=== PATIENT | female | born 1995 | race Caucasian/White ===

== ENCOUNTER → 2019-07-04 14:11 | Outpatient (CLI) | payer OTHER, BC, SELFPAY ==
--- NOTE | 2019-07-04 14:21 | US_ITS ---
PROCEDURE: US TRANSVAGINAL CLINICAL INDICATION: MENORRHAGIA W/ REGULAR CYCLE Heavy painful periods. IUD in place COMPARISON: TVP US TRANSVAGINAL PREG from 05/07/2015 FINDINGS: 9 x 4 x 5.5 cm. An IUD is present in the expected location. No uterine mass apparent. Endometrial thickness is 4 mm. The left ovary is 2.9 x 2.3 cm and has an unremarkable appearance. The right ovary is 2.9 x 1.9 cm and has an unremarkable appearance. Bilateral ovarian blood flow is present. No cul-de-sac fluid apparent IMPRESSION: . IUD in place otherwise unremarkable pelvic ultrasound of Dictated by: Jose Guardado MD 07/04/2019 15:46 Electronically signed by Jose Guardado MD in [place] 07/04/2019 15:46
== END ==
PROVIDERS: PCP Family Medicine; Visit Provider Physician Assistant
DX: N92.0 Excessive and frequent menstruation with regular cycle (principal)
CPT/HCPCS: 76830

== ENCOUNTER → 2019-09-25 16:00 | Outpatient (CLI) | payer OTHER, BC, SELFPAY ==
[2019-09-25 16:36] LABS: Basophils % 0.3 % (0.1-2.0); Eosinophils # 0.1 K/mm3 (0.0-0.4); Eosinophils % 1.6 % (0.1-12.0); Hematocrit 40.8 % (37.0-47.0); Hemoglobin 13.7 g/dL (12.2-16.2); Lymphocytes # 2.1 K/mm3 (0.7-4.5); Mean Corpuscular HGB Conc 33.5 g/dL (31.8-35.4); Mean Corpuscular Hemoglobin 30.9 pg (27.0-31.2); Mean Corpuscular Volume 92.3 fl (81-99); Mean Platelet Volume 7.5 fl (7.4-10.4); Monocytes # 0.4 K/mm3 (0.1-1.0); Monocytes % 5.1 % (1.7-9.3); Neutrophils # 4.8 K/mm3 (1.8-7.8); Platelet Count 343 K/mm3 (142-424); Red Blood Count 4.42 M/mm3 (4.20-5.40); Red Cell Distribution Width 13.2 % (11.5-17.5); White Blood Count 7.4 K/mm3 (4.8-10.8)
[2019-09-25 18:38] LABS: Alanine Aminotransferase 41 U/L (12-78); Albumin Level 3.9 gm/dL (3.4-5.0); Albumin/Globulin Ratio 1.4 (1.1-1.8); Alkaline Phosphatase 99 U/L (46-116); Anion Gap 17.3 mEq/L (5-15); Aspartate Amino Transferase 16 U/L (15-37); Bilirubin,Total 0.2 mg/dL (0.2-1.0); Blood Urea Nitrogen 9 mg/dL (7-18); Calcium 8.7 mg/dL (8.5-10.1); Carbon Dioxide 25 mmol/L (21.0-32.0); Chloride 103 mmol/L (98-107); Estimated Glomerular Filt Rate 87 ml/min (>60); Free T4 (Free Thyroxine) 0.97 ng/dl (0.76-1.46); GFR (African American) 105 ML/MIN (>60); Globulin 2.8 gm/dl (1.3-3.2); Glucose 97 mg/dL (74-106); Potassium 4.3 mmoL/L (3.5-5.1); Sodium 141 mmol/L (136-145); Thyroid Stimulating Hormone 1.65 uIU/ml (0.358-3.740); Total Protein,Serum 6.7 gm/dL (6.4-8.2)
[2019-09-27 11:39] LABS: Vitamin B12 507 pg/mL (232-1245); Vitamin D 25 Hydroxy 22.9 ng/mL (30.0-100.0)
== END ==
PROVIDERS: Visit Provider Physician Assistant
DX: R53.83 Other fatigue (principal); E55.9 Vitamin D deficiency, unspecified
CPT/HCPCS: 36415; 80053; 82607; 82652; 84439; 84443; 85025

== ENCOUNTER → 2020-05-15 15:32 | Outpatient (CLI) | payer OTHER, SELFPAY ==
--- NOTE | 2020-05-15 15:45 | ECG_ITS ---
APPROVED REPORT Exam: Resting ECG HR:78 bpm ECG Measurements Heart Rate 78 AXES VT 108 P 39 QRSd 78 QRS 57 QT 356 T 41 QTc 405 <Conclusion> Sinus rhythm with short VT Otherwise normal ECG Electronically signed by : Jack Barrett, 05/17/2020 21:16:12
== END ==
PROVIDERS: PCP Family Medicine; Visit Provider Family Medicine
DX: R00.2 Palpitations (principal); R42 Dizziness and giddiness
CPT/HCPCS: 93005

== ENCOUNTER 2020-06-28 13:10 | Emergency (ER) | payer OTHER, SELFPAY ==
[2020-06-28 13:23] VITALS: BP 118/73; PULSE 81; RESP 20; TEMP 36.8; O2SAT 100; BMI 29.7
--- NOTE | 2020-06-28 13:30 | HMH.EDUTC ---
[facility] Disposition Clinical Impression: Poison lesia dermatitis Disposition: Home, Self-Care Condition on Discharge: Good Instructions: DI for Poison Lesia Allergy Additional Instructions: Take medication as prescribed Over the counter Benadryl may help with itching Aveeno oatmeal baths may help with itching and irritation Return if needed Straight to ER if any life threatening symptoms Prescriptions: methylPREDNISolone [Medrol 4mg tab] 4 mg PO DIRECTED #21 tab Transmission Status: Received by [facility] [employer] #[id number] Referrals: Chan Montelongo MD [Primary Care Provider] - As needed Time of Disposition: 13:52 Medical Decision Making - Sanjay Inquiry Pt receiving controlled substance: No Sanjay was queried for this patient: No Vital Signs: 06/28/20 13:23 Temperature 98.2 F Temperature Source Oral Pulse Rate [Right Brachial] 81 Respiratory Rate 20 Blood Pressure [Right Arm] 118/73 Blood Pressure Mean [Right Arm] 88 Blood Pressure Source [Right Arm] Automatic Cuff Blood Pressure Position [Right Arm] Sitting 02 Sat by Pulse Oximetry 100 Oxygen Delivery Method Room Air Orders (Tests/Meds): ED MEDICATIONS Discontinued Medications Generic Name Dose Route Start Last Admin Trade Name Osmar PRN Reason Stop Dose Admin Methylprednisolone Sodium Succinate 125 mg 06/28/20 13:31 06/28/20 13:45 Solu-Medrol 125mg/2ml Vial IM 06/28/20 13:32 125 mg ONCE ONE Administration [facility] HPI - General Stated complaint: posion lesia Time Seen by Provider: 06/28/20 13:31 Mode of Arrival: Ambulatory Source of Information: Patient Limitations: No Limitations Description of Symptoms (Recalled from Triage Doc. by RN): PATIENT C/O RASH TO BLE, BUTTOCK, AND INSIDE LEFT EAR SINCE MONDAY. STATES SHE TOOK 3 DOSES OF DEXAMETHASONE SHE HAD AT HOME WITH NO RELIEF HEENT Symptoms (Recalled from RN notes): No Resp Symptoms (Recalled from RN notes): No Skin Symptoms (Recalled from RN notes): Yes MS Symptoms (Recalled from RN notes): No Functional Status (Recalled from RN notes): WNL - History of Present Illness Provider Complaint: Patient states that she has been having rash since Mon that has spread over her body States that rash in her left ear, side of face, neck, and buttock area and legs States that she has never had reaction to poison lesia but she was out pulling weeds and handled it and now breaking out - Related Data Previous Rx's Medication Instructions Recorded methylPREDNISolone [Medrol 4mg 4 mg PO DIRECTED #21 tab 06/28/20 tab] Allergies Allergy/AdvReac Type Severity Reaction Status Date / Time No Known Allergies Allergy Verified 05/20/20 11:21 - Worker's Comp Is this a Worker's Comp case?: No [facility] History - Hepatitis A Screen Drug use history?: No High risk sexual behaviors?: No History of sexually transmitted infection?: No Currently employed?: No Childcare worker?: No Do you have indoor plumbing?: Yes Do you have electricity?: Yes Attestation statement:: This patient has been screened for Hepatitis A risk factors. I have reviewed the patient's past medical history: Yes Medical History: Reports:: Gall Bladder Disease Laterality Cases: Bilateral: Tonsillectomy Other Surgeries: Yes: Cholecystectomy, Other Amputation: No Fractures: No Comment: sinus sx, ear tubes - Social History Smoking Status: Never smoker Alcohol Intake: never Substance Use Type: denies use Occupational Status: other Family Hx:: No significant family history STORE SHOPPER history: No STORE SHOPPER history, Non-contributory ROS Obtained: Yes All systems reviewed & no additional complaints, Yes Systems reviewed as appropriate & no additional complaints - Constitutional Constitutional: Reports system reviewed and no additional complaints, except as docu - Cardiovascular Cardiovascular: Reports system reviewed and no additional complaints, except as docu - Respiratory Respiratory: Yes system reviewed
[2020-06-28 13:54] VITALS: BP 118/73; PULSE 81; RESP 20; TEMP 36.8; O2SAT 100
== END 2020-06-28 13:55 | disposition home or self-care (01) ==
PROVIDERS: Emergency Provider Nurse Practitioner; PCP Family Medicine
DX: L23.7 Allergic contact dermatitis due to plants, except food (principal); Z90.49 Acquired absence of other specified parts of digestive tract
CPT/HCPCS: 96372; 99201

== ENCOUNTER → 2021-06-21 19:36 | Outpatient (CLI) | payer OTHER, SELFPAY | PROVIDERS: Visit Provider Nurse Practitioner Family | DX: Z20.822 Contact with and (suspected) exposure to COVID-19 (principal); U07.1 COVID-19 | CPT/HCPCS: U0003 ==

== ENCOUNTER → 2022-01-04 11:52 | Outpatient (CLI) | payer OTHER, SELFPAY ==
[2022-01-04 13:22] LABS: Basophils # 0.1 K/mm3 (0-0.2); Basophils % 1.3 % (0.1-2.0); Eosinophils # 0.1 K/mm3 (0.0-0.4); Eosinophils % 1.1 % (0.1-12.0); Hematocrit 43.2 % (37.0-47.0); Hemoglobin 14.2 g/dL (12.2-16.2); Lymphocytes # 1.4 K/mm3 (0.7-4.5); Lymphocytes % 27.8 % (10-50); Mean Corpuscular HGB Conc 32.9 g/dL (31.8-35.4); Mean Corpuscular Hemoglobin 31.9 pg (27.0-31.2); Mean Corpuscular Volume 96.8 fl (81-99); Mean Platelet Volume 7.9 fl (7.4-10.4); Monocytes # 0.5 K/mm3 (0.1-1.0); Monocytes % 9.3 % (1.7-9.3); Neutrophils % 60.5 % (37.0-80.0); Platelet Count 304 K/mm3 (142-424); Red Blood Count 4.47 M/mm3 (4.20-5.40); Red Cell Distribution Width 13.4 % (11.5-17.5); White Blood Count 4.9 K/mm3 (4.8-10.8)
[2022-01-04 16:31] LABS: Strep Scrn Group A (Rapid) Negative (Negative)
== END ==
PROVIDERS: PCP Family Medicine; Visit Provider Nurse Practitioner
DX: Z20.822 Contact with and (suspected) exposure to COVID-19 (principal)
CPT/HCPCS: 36415; 85025; 87275; 87276; 87430; C9803; U0003; U0005

== ENCOUNTER → 2022-02-18 14:12 | Outpatient (CLI) | payer OTHER, SELFPAY ==
--- NOTE | 2022-02-18 14:20 | XR_ITS ---
FINAL REPORT CLINICAL HISTORY: NECK PAIN, lt side pt fell off a horse years ago FINDINGS: CERVICAL SPINE Five views were obtained. There is no acute fracture. There is loss of cervical lordosis. There is no malalignment. The disc spaces are maintained. IMPRESSION: No acute process. Reviewed, Interpreted and Dictated by Mic Celaya MD Transcribed by Dilshad Davalos Authenticated by Mic Celaya MD on 02/18/2022 04:03:[address] [facility]
== END ==
PROVIDERS: PCP Family Medicine; Visit Provider Physician Assistant
DX: M54.2 Cervicalgia (principal)
CPT/HCPCS: 72050

== ENCOUNTER 2022-07-17 13:21 | Emergency (ER) | payer OTHER, SELFPAY ==
[2022-07-17 13:35] VITALS: BP 120/77; PULSE 84; RESP 18; TEMP 36.8; O2SAT 97; BMI 36.9
[2022-07-17 13:50] VITALS: BP 120/77; PULSE 84; RESP 18; TEMP 36.8; O2SAT 97
--- NOTE | 2022-07-17 13:53 | EXP.UTC ---
Discharge Plan Disposition Patient Disposition: Home, Self-Care Condition: Good Prescriptions Prescriptions: New cefdinir 300 mg capsule 300 mg PO BID Qty: 20 0RF phenazopyridine [Pyridium] 200 mg tablet 200 mg PO Q8H 2 Days Qty: 6 0RF No Action phentermine [Adipex-P] 37.5 mg tablet 37.5 mg PO DAILY Qty: 30 0RF Rx Instructions: must administer 30 minutes before or 1-2 hours after breakfast Referrals Follow up/Referrals: Chan Montelongo MD [Primary Care Provider] - See instructions Activity Restrictions/Add. Instructions Additional Instructions/Restrictions: *Increase fluids. Water not Soda or Tea *Start antibiotic immediately and be sure to take as ordered for the FULL length of time although you should start to see improvement over the next 48 hours *Pyridium as needed Remember this medication will turn your urine . This is normal but it will stain what ever it gets on *You should not use Pyridium for more than 48 hours. If so , follow up with your primary physician to review urine culture and ensure that antibiotic is adequate for infection *Be SURE to follow up anytime for new or worsening symptoms with your family doctor. AND in 48 hours for urine culture results with your family doctor, if you do not have a doctor then you may call back to the [facility] for urine culture results and further treatment. We do recommend that you choose and establish care with a Primary Care Physician. ?AND follow up with them ?in 10-14 days to repeat UA to ensure infection is resolved and blood no longer present *Be sure to let your PCP know that we sent urine cultures from the [facility] so they can follow up to ensure that you area the on the correct antibiotic Call your doctor office and make appointment for 48 hours (2 days from today) ?to follow up and get the results of your urine culture and further treatment Clinical Impressions Clinical Impression: UTI (urinary tract infection) Discharge ED Provider: Sanjuanita [facility] [place] General Stated complaint: UTI Mode of Arrival: Ambulatory Source of Information: Patient Limitations: No Limitations Time Seen by Provider: 07/17/22 13:53 Description of Symptoms (Recalled from Triage Doc. by RN): PATIENT C/O URINARY BURNING AND FREQUENCY SINCE LAST NIGHT HEENT Symptoms (Recalled from RN notes): No Resp Symptoms (Recalled from RN notes): No Skin Symptoms (Recalled from RN notes): No MS Symptoms (Recalled from RN notes): No Functional Status (Recalled from RN notes): WNL History of Present Illness Provider Complaint: Patient states that she feels like she has UTI States that she started yesterday with burning with urination and feeling of urgency and frequency States that she feels like she continuously has to go States that today she was still having symptoms so she came in to get it checked out Related Data Previous Rx's Medication Instructions Recorded phentermine 37.5 mg tablet 37.5 mg PO DAILY #30 tabs 06/29/22 (Adipex-P) cefdinir 300 mg capsule 300 mg PO BID #20 caps 07/17/22 phenazopyridine 200 mg tablet 200 mg PO Q8H pain 2 days #6 tabs 07/17/22 (Pyridium) Allergies Allergy/AdvReac Type Severity Reaction Status Date / Time No Known Allergies Allergy Verified 06/29/22 08:28 Worker's Comp Is this a Worker's Comp case?: No PFSH PFSH Surgical History History of adenoidectomy History of cholecystectomy History of placement of ear tubes Social History Smoking Status: Never smoker alcohol intake: never substance use type: denies use current occupational status: other Travel in the last 8 weeks: None ROS Obtained: Yes All systems reviewed & no additional complaints except as documented and Yes Systems reviewed as appropriate & no additional complaints except as documented Constitutional Constitutional: Reports system reviewed and no
[2022-07-17 14:01] LABS: Apearance,Urine Cloudy (Clear); Bilirubin,Urine 2+ (Negative); Blood, Urine 2+ (Negative); Color,Urine Red (Yellow); Glucose,Urine (UA) 250 (Negative); Ketones,Urine TRACE (Negative); Protein,Urine 1+ (Negative); Specific Gravity, Urine 1.025 (1.005-1.030); UTC Leukocyte Esterase,Urine 3+ (Negative); UTC Nitrate,Urine Positive (Negative); Urobilinogen,Urine 4 EU/dl (0.2)
== END 2022-07-17 13:54 | disposition home or self-care (01) ==
PROVIDERS: Emergency Provider Nurse Practitioner; PCP Family Medicine
DX: N39.0 Urinary tract infection, site not specified (principal)
CPT/HCPCS: 81003; 87086; 99212; G0463

== ENCOUNTER 2024-07-10 11:43 | Outpatient (CLI) | payer OTHER, SELFPAY ==
--- NOTE | 2024-07-10 11:48 | XR_ITS ---
FINAL REPORT CLINICAL HISTORY: Foot Pain COMPARISON: None FINDINGS: RIGHT FOOT Three views demonstrate no acute fracture or dislocation. The joint spaces appear normal. No acute soft tissue abnormality is seen. The bones are well-mineralized. There is no evidence of erosion. IMPRESSION: No acute bony abnormality. Reviewed, Interpreted and Dictated by Lluvia Adhikari MD Transcribed by Danica Saha Authenticated and [facility]
--- NOTE | 2024-07-10 11:48 | XR_ITS ---
FINAL REPORT CLINICAL HISTORY: Foot Pain COMPARISON: None FINDINGS: LEFT FOOT Three views demonstrate no acute fracture or dislocation. The joint spaces appear normal. No acute soft tissue abnormality is seen. The bones are well-mineralized. There is no evidence of erosion. IMPRESSION: No acute bony abnormality. Reviewed, Interpreted and Dictated by Lluvia Adhikari MD Transcribed by Danica Saha Authenticated and [facility]
== END 2024-07-10 23:59 | disposition home or self-care (01) ==
LOC: RAD 11:45
PROVIDERS: PCP Family Medicine; Visit Provider Nurse Practitioner
DX: M79.671 Pain in right foot (principal); M79.672 Pain in left foot
CPT/HCPCS: 73630

== ENCOUNTER 2024-10-11 13:50 | Outpatient (CLI) | payer BC, OTHER, SELFPAY ==
--- NOTE | 2024-10-11 13:53 | XR_ITS ---
FINAL REPORT CLINICAL HISTORY: Ankle Pain COMPARISON: None FINDINGS: LEFT ANKLE 3 views of the left ankle were obtained. There is no acute fracture or dislocation. The mortise is intact. Visualized joint spaces are normally aligned. Soft tissues are unremarkable. IMPRESSION: No acute bony abnormality. Reviewed, Interpreted and Dictated by Mic Celaya MD Transcribed by Danica Saha Authenticated and [facility]
--- NOTE | 2024-10-11 13:53 | XR_ITS ---
FINAL REPORT CLINICAL HISTORY: Foot Pain, fall x 3 days ago, bruising around 2nd & 3rd digit COMPARISON: 07/10/2024 FINDINGS: LEFT FOOT Three views demonstrate no acute fracture or dislocation. The joint spaces appear normal. Soft tissue swelling is noted over the dorsum of the foot. IMPRESSION: Soft tissue swelling without acute bony abnormality. Reviewed, Interpreted and Dictated by Mic Celaya MD Transcribed by Danica Saha Authenticated and [facility]
== END 2024-10-11 23:59 | disposition home or self-care (01) ==
LOC: RAD 13:51
PROVIDERS: PCP Family Medicine; Visit Provider Nurse Practitioner
DX: M79.672 Pain in left foot (principal); M25.572 Pain in left ankle and joints of left foot
CPT/HCPCS: 73610; 73630

== ENCOUNTER 2024-12-16 18:08 | Outpatient (CLI) | payer BC, OTHER, SELFPAY ==
--- NOTE | 2024-12-16 18:24 | XR_ITS ---
PROCEDURE INFORMATION: Exam: XR Cervical Spine Exam date and time: 12/16/2024 6:15 PM Age: 29 years old Clinical indication: Neck pain TECHNIQUE: Imaging protocol: Radiologic exam of the cervical spine. Views: 2 or 3 views. COMPARISON: CR XR CERVICAL SPINE 5V 02/18/2022 2:29 PM FINDINGS: Bones/joints: Normal. No acute fracture. Normal alignment. Soft tissues: Unremarkable. Other findings: Prominent fat of the upper back. IMPRESSION: 1. Prominent fat of the upper back similar to prior comparison. Correlate clinically. 2. No acute or aggressive osseous abnormality.
== END 2024-12-16 23:59 | disposition home or self-care (01) ==
LOC: RAD 18:12
PROVIDERS: PCP Family Medicine; Visit Provider Student in an Organized Health Care Education/Training Program
DX: M54.2 Cervicalgia (principal)
CPT/HCPCS: 72040

== ENCOUNTER 2025-10-15 11:27 | Outpatient (CLI) | payer BC, OTHER, SELFPAY ==
--- OUTSIDE RECORDS SUMMARY | 2024-10-01 10:45 | XMS_ITS ---
Author Organization [facility] Address [address] [facility] [address] [place] [id number] Care Team Providers Care Mixer Runner Name Role Phone Odette Jason Primary Care Provider [phone] Ezequiel Becker Unavailable [phone] Allergies No Known Allergies Results Component Value Reference Range Notes Rapid Strep- Inhouse Reviewed date:10/01/2024 05:11:52 PM Interpretation:Negative Performing Lab: Notes/Report: Negative strep test neg REASON FOR VISIT headache sore throat Medications Medication SIG (Take, Route, Fr equency, Duration) Notes Start Date End Date Status Zithromax Z-Geoffrey 250 MG as directed Orally 10/01/20 24 Active Vital Signs Weight 223.0 lbs 10/01/2024 Blood pressure systolic 108 mm Hg 10/01/20 24 Blood pressure diastolic 72 mm Hg 024 Heart Rate 97 /min 10/01/2024 Height 65 in 10/01/2024 BMI 37.11 kg/m2 10/01/2024 Encounters Encounter Location Date Provider Diagnosis [facility] [address] [place] [address] [place] [id number] 10/01/2024 Ezequiel Kurtz Acute pharyngitis J02.9 Assessments Encounter Date Diagnosis (ICD Code) Assessment Notes Treatment Notes Treatment Clinical Notes Section Notes 10/01/2024 Acute pharyngitis (ICD-10 - J02.9) Plan Of Treatment Medication Medication Name Sig Start Date Stop Date Notes Zithromax Z-Geoffrey 250 MG as directed Orally 10/01/2024 Next Appt Details Follow Up: prn, Reason: Progress Notes * Belkis CHAVEZDOB: (30 yo F)Acc No.[id number]:10/01/2024 Progress Notes Patient: Belkis TANG Provider: Ezequiel Kurtz M.D. :1995 A ge:29 Y S ex:Female Date:10/01/2024 Address:[address] [place] [address] [place], [id number] Pcp:Odette Jason Subjective: * Chief Complaints: * 1 . Headache sore throat. * HPI: E NT/respiratory: 29 year old female presents with c/o sore throat. c/o cough d ry cough. c/o Fever P t sts she felt like she may have had a fever yesterday and felt fatigued. c/o ear pain P t sts her ears have been hurting, but she is unable to tell if it is ear pain or from her throat hurting. c/o headache. * ROS: D ERMATOLOGY: no R zena. n o H meghan. G ASTROENTEROLOGY: no N ausea. n o V omiting. n o D iarrhea.? U ROLOGY: no D ifficulty urinating. n o B lood in urine. * Medical History: I nterstitial Cystitis, Polycystic Ovaries, Hyperprolactinemia, S/P Pituitary MRI 2014. * Surgical History: T onsillectomy , Adenoidectomy , Bilateral Ear Tubes x 2 , Sinus Surgery . * Hospitalization/Major Diagno stic Procedure: F all Off Horse- [facility] ER 04/20/2011. * Family History: F ather: alive. M other: alive. 2 brother(s) , 1 sister(s) - healthy. . * Social History: C URRENT TOBACCO USE S moking Status: Patient does NOT smoke. C affeine: yes, frequency:. Past smoking status: no, Smoking status: Does not smoke. * Medications: N one * Allergies: N .K.D.A. Objective: * Vitals: W t:223.0, Temp:98.0, BP:108/72, HR:97, Nurse:ROSA, Ht: 65, BMI:37.11. * Examination: E NT/Respiratory: General Appearance: N AD. E yes: P ERRLA, sclera clear. E ars: a uditory canals normal bilaterally, TM's WNL. N ose : n ormal, no lesions, nares patent. O ral cavity : erythema without exudate on pharynx. N clifford : mildly tender anterior adenopathy. H eart : R RR, normal S1 S2, no murmurs. L ungs: c lear to auscultation bilaterally. Assessment: * Assessment: 1. A cute pharyngitis - J02.9 (Primary) Plan: * Treatment: Value Reference Range s trep test neg * Kirsten Candelario 10/01/2024 3:5 7:45 PM > results reviewed w/ pt in office * Procedure Codes: 8 7880 STREP A ASSAY W/OPTIC, Modifiers: QW * Follow Up: p rn * Images: Billing Information: * Visit Code: 07608 Office Visit, Est Pt., Level 4. * Procedure Codes: 64499 STREP A ASSAY W/OPTIC. Modifiers: QW * Electronic signature of Ezequiel Kurtz MD on 10/15/2025 at 11:31 AM EST Sign off status: Pending * Provider: Ezequiel Kurtz M.D. Date: 12/02/2023 Generated for Kevini ng/Fashanaeg/eTransmitting on: 11:31 AM EST History and Physical Notes * HPI (History of Present Illness) Category Sub-Category Detail Notes Category Not es ENT/respiratory sore throat ear pain Pt sts her ears have been hurting, but she is unable to tell if it is ear pain or from her throat hurting cough dry cough Fever Pt sts she felt like she may have had a fever yesterday and felt fatigued headache Examination Category Sub-Category Detail Notes Category Not es ENT/Respiratory Oral cavity : erythema without exudate on pharynx Ears: auditory canals norm al bilaterally, TM's WNL Neck : mildly tender anteri or adenopathy Heart : RRR, normal S1 S2, n o murmurs Lungs: clear to auscultatio n bilaterally General Appearance: NAD Nose : normal, no lesions, nares patent Eyes: PERRLA, sclera clear
--- OUTSIDE RECORDS SUMMARY | 2024-10-11 09:45 | XMS_ITS ---
Author Organization [facility] Address [address] [facility] [address] [place] [id number] Care Team Providers Care Control Clerk Subassembly Name Role Phone Odette Jason Primary Care Provider [phone] Chan Montelongo Unavailable [phone] Allergies No Known Allergies REASON FOR VISIT left foot pain after fall Vital Signs Weight 220.4 lbs 10/11/2024 Blood pressure systolic 122 mm Hg 10/11/20 24 Blood pressure diastolic 70 mm Hg 024 Heart Rate 92 /min 10/11/2024 Height 65 in 10/11/2024 BMI 36.67 kg/m2 10/11/2024 Encounters Encounter Location Date Provider Diagnosis [facility] [address] [place] [phone] 10/11/2024 Chan Montelongo Sprain of left ankle , unspecified ligament, initial encounter S93.402A Assessments Encounter Date Diagnosis (ICD Code) Assessment Notes Treatment Notes Treatment Clinical Notes Section Notes 10/11/2024 Sprain of left ankle, unspecified ligament, initial encounter (ICD-10 - S93.402A) Rest, ice, compression and elevation, xrays reviewed in office today Plan Of Treatment Treatment Notes Assessment Notes Sprain of left ankle, unspec ified ligament, initial encounter Rest, ice, compression and elevation, xrays reviewed in office today Next Appt Details Follow Up: via phone to repo rt progress, Reason: Progress Notes * Belkis CHAVEZDOB: (30 yo F)Acc No.[id number]:10/11/2024 Progress Notes Patient: Belkis TANG Provider: Keny Montelongo M.D. :1995 A ge:29 Y S ex:Female Date:10/11/2024 Address:[address] [place] [address] [place], [id number] Pcp:Odette Jason Subjective: * Chief Complaints: * 1 . Left foot pain after fall. * HPI: A nkle/Foot: 29 year old female presents with c/o Pain P t complains of lt foot pain, swelling and bruising for 3 days. Pt states she fell down stairs on Monday. Pt states she did not think anything was broken but swelling and bruising have worsened. Pt did have lt foot and ankle x-ray at [facility] but results have not been read yet. c/o Fall. * ROS: C ARDIOLOGY: no D izziness. n o C hest pain. G ASTROENTEROLOGY: no N ausea. n o V omiting. U ROLOGY: no D ifficulty urinating. n o B lood in urine. * Medical History: I nterstitial Cystitis, Polycystic Ovaries, Hyperprolactinemia, S/P Pituitary MRI 2014. * Surgical History: T onsillectomy , Adenoidectomy , Bilateral Ear Tubes x 2 , Sinus Surgery . * Hospitalization/Major Diagno stic Procedure: F all Off Horse- [facility] ER 04/20/2011. * Family History: F ather: alive. M other: alive. 2 brother(s) , 1 sister(s) - healthy. . * Social History: C URRENT TOBACCO USE S moking Status: Patient does NOT smoke. C affeine: yes, frequency:. Past smoking status: no, Smoking status: Does not smoke. * Medications: D iscontinued Zithromax Z-Geoffrey 250 MG Tablet as directed Orally , Medication List reviewed and reconciled with the patient * Allergies: N .K.D.A. Objective: * Vitals: W t:220.4, Temp:97.9, BP:122/70, HR:92, Nurse:telma, Ht: 65, BMI:36.67. * Examination: G eneral Examination: General Appearance: N AD. A nkle / Foot: Ankle: left. I nspection: s welling on lateral side of ankle and foot with some bruising. P alpation: n o tenderness on malleoli, calcaneum or achillis. R ankit of motion: n ormal inversion and eversion. Assessment: * Assessment: 1. S prain of left ankle, unspecified ligament, initial encounter - S93.402A (Primary) ? Plan: * Treatment: * Follow Up: v ia phone to report progress * Images: Billing Information: * Visit Code: 83987 Office Visit, Est Pt., Level 3. * Procedure Codes: * Electronic signature of Laverne Montelongo MD on 10/15/2025 at 11:30 AM EST Sign off status: Pending * Provider: Keny Montelongo M.D. Date: 12/12/2023 Generated for Lorenzo gutierrez/Cheryl/eTransmitting on: 11:30 AM EST History and Physical Notes * HPI (History of Present Illness) Category Sub-Category Detail Notes Category Not es Ankle/Foot Fall Pain Pt complains of lt f oot pain, swelling and bruising for 3 days. Pt states she fell down stairs on Monday. Pt states she did not think anything was broken but swelling and bruising have worsened. Pt did have lt foot and ankle x-ray at [facility] but results have not been read yet Examination Category Sub-Category Detail Notes Category Not es General Examination General Appearance: NAD Ankle / Foot Inspection: swelling on late ral side of ankle and foot with some bruising Palpation: no tenderness on mal leoli, calcaneum or achillis Ankle: left Range of motion: normal inversion and eversion
--- OUTSIDE RECORDS SUMMARY | 2024-12-18 05:15 | XMS_ITS ---
Author Organization [facility] Address [address] [facility] [address] [place] [id number] Care Team Providers Care Latin Dancer Name Role Phone Odette Jason Primary Care Provider Allergies No Known Allergies Results Component Value Reference Range Notes MRI : Spine, Cervical, witho ut contrast Reviewed date:12/27/2024 05:10:51 PM Interpretation: Performing Lab: Notes/Report: REASON FOR VISIT head and neck pain Medications Medication SIG (Take, Route, Fr equency, Duration) Notes Start Date End Date Status Medrol 4 MG as directed orally d aily; Duration: 6 days 12/18/2024 Active Methocarbamol 750 MG 1 tablet Orally thr ee times a day as needed 12/18/2024 Active Problems Problem Type SNOMED Code ICD Code Onset Dates Problem Status W/U Status Risk Notes Problem Neck pain (14022193) Neck pain (M54.2) Active confirmed Problem Cervical radiculopathy (19039364) Cervical radiculopathy (M54.12) Active confirmed Vital Signs Weight 221.8 lbs 12/18/2024 Blood pressure systolic 120 mm Hg 12/19/19 25 Blood pressure diastolic 80 mm Hg 025 Heart Rate 83 /min 12/18/2024 Height 65 in 12/18/2024 BMI 36.91 kg/m2 12/18/2024 Encounters Encounter Location Date Provider Diagnosis Jesus [address] [place] [id number] 12/18/2024 Odette Jason Neck pain M54.2 and Cervical radiculopathy M54.12 Assessments Encounter Date Diagnosis (ICD Code) Assessment Notes Treatment Notes Treatment Clinical Notes Section Notes 12/18/2024 Neck pain (ICD-10 - M54.2) Has had neck pain for quite some time. Has tried medication and PT at [facility] with no improvment. Needs an MRI. 12/18/2024 Cervical radiculopathy (ICD-10 - M54.12) Plan Of Treatment Medication Medication Name Sig Start Date Stop Date Notes Medrol 4 MG as directed orally d aily; Duration: 6 days 12/18/2024 Methocarbamol 750 MG 1 tablet Orally thr ee times a day as needed 12/18/2024 Treatment Notes Assessment Notes Neck pain Has had neck pain fo r quite some time. Has tried medication and PT at [facility] with no improvment. Needs an MRI. Next Appt Details Follow Up: via phone to repo rt test results, Reason: Progress Notes * Belkis CHAVEZ ZenaamintaDOB: (30 yo F)Acc No.[id number]:12/18/2024 Progress Notes Patient: Belkis TANG Provider: LIZBETH Pierce :1995 A ge:29 Y S ex:Female Date:12/18/2024 Address:[address] [place] [address] [place], [id number] Subjective: * Chief Complaints: * 1 . Head and neck pain. * HPI: N clifford: The pt is here today with c/o pain in back of her neck that radiates up into her head. Pt states this started on Monday. Pt states she has had issues with her neck for several years but this feels different. She went to the ER and was given toradol and a steroid shot. The pain was better for that day but returned the next day. She has pain that radiates down the left arm and into the right side of her face. 29 year old female presents with c/o pain. c/o radiation of pain. c/o tingling/ numbness. * ROS: D ERMATOLOGY: no R zena. [...] Diagno stic Procedure: F all Off Horse- [facility] ER 04/20/2011. * Family History: F ather: alive. M other: alive. 2 brother(s) , 1 sister(s) - healthy. . * Social History: C URRENT TOBACCO USE S moking Status: Patient does NOT smoke. C affeine: yes, frequency:. Past smoking status: no, Smoking status: Does not smoke. * Medications: N one * Allergies: N .K.D.A. Objective: * Vitals: W t:221.8, Temp:98.2, BP:120/80, HR:83, Nurse:ALIE, Ht: 65, BMI:36.91. * Examination: N clifford: Vertebral spine tenderness: present along C-spine and paraspinal muscles bilaterally, sternocleidomastoid tenderness, trapezius tender bilaterally. P araspinal muscle spasm: present bilaterally, worse on the right. R ankit of motion of neck:? limited in all directions. T rapezius tenderness: present bilaterally, worse on the right. S houlder joint: n ormal ROM. S ensations: n ormal bilaterally. M otor strength: diminished on the left. Assessment: * Assessment: 1. N clifford pain - M54.2 (Primary) 2 . C ervical radiculopathy - M54.12 ? Plan: * Treatment: Notes: Has had neck pain for quite some time. Has tried medication and PT at [facility] with no improvment. Needs an MRI.??2.?Cervical radiculopathy?Imaging: MRI : Spine, Cervical, without contrast (Performed Date - 12/25/2024)* Odette Jason 12/18/2024 10: 53:18 AM >Kristi Strickland 12/18/2024 11:50:42 AM > auth#[id number]; valid 12/18/2024 through 01/16/2025; CPT code 93427; faxed to [facility] [facility] Bethany Sierra 12/18/2024 1:03:01 PM > Patient request testing to be scheduled through [facility].Kirsten Candelario 12/26/2024 02:23:49 PM > pt is calling for Odette Duque 12/27/2024 5:10:49 PM > see TE * Procedure Codes: 3 074F SYST BP LT 130 MM HG, 3079F DIAST BP 80-89 MM HG * Follow Up: v ia phone to report test results * Images: Billing Information: * Visit Code: 88259 Office Visit, Est Pt., Level 3. * Procedure Codes: 3074F SYST BP LT 130 MM HG. 3079F DIAST BP 80-89 MM HG. * Electronic signature of LIZBETH Agee on 10/15/2025 at 11:30 AM EST Sign off status: Pending * Provider: LIZBETH Pierce Date: 0 12/18/2024 Generated for Lorenzo ng/Cheryl/eTransmitting on: 1 11:30 AM EST History and Physical Notes * HPI (History of Present Illness) Category Sub-Category Detail Notes Category Not es Neck tingling/ numbness radiation of pain pain Examination Category Sub-Category Detail Notes Category Not es Neck Vertebral spine tenderness: present along C-spine and paraspinal muscles bilaterally, sternocleidomastoid tenderness, trapezius tender bilaterally Paraspinal muscle spasm: present bilater ally, worse on the right Range of motion of neck: limited in all directions Trapezius tenderness: present bilaterall y, worse on the right Shoulder joint: normal ROM Sensations: normal bilaterally Motor strength: diminished on the le ft
--- OUTSIDE RECORDS SUMMARY | 2025-05-05 05:45 | XMS_ITS ---
Author Organization [facility] Address [address] [place] [id number] Care Team Providers Care Hospice Clinical Marketer Name Role Phone Odette Jason Primary Care Provider [phone] Ana Rosa Washington Unavailable [phone] Allergies No Known Allergies Results Component Value Reference Range Notes CBC Venipuncture (in house) Reviewed date:05/05/2025 03:47:57 PM Interpretation: Performing Lab: Notes/Report: wbc 12.6 3.5 - 10 lymph 5.5 15 - 50 mid 8.0 2 - 15 gran 86.5 35 - 80 rbc 4.84 3.5 - 5.5 hgb 15.1 11.5 - 16.5 hct 44.4 35 - 55 mcv 91.7 75 - 100 mch 31.1 25 - 35 mchc 33.9 31 - 38 platlet 411 100 - 400 P-Alpha Gal, Galactose-Alpha -1,3-Galactose (Alpha-Gal) IgE Reviewed date:05/06/2025 07:23:03 PM Interpretation:<o.1 Performing Lab: Notes/Report: Test performed by [facility] [address] [place] [address] , [address], [place] [address] Lizandro Toro MD, Occ Med Physician CLIA: [id number] Allergen, Food, Alpha Galactose (Alpha-Gal) IgE <0.1 <0.10-0.34 kU/L P-Antistreptolysin O AB Reviewed date:05/06/2025 07:22:22 PM Interpretation:Negative Performing Lab: Notes/Report: Test performed by [facility] [address] [place] [address] , [address], [place] [address] Lizandro Toro MD, Occ Med Physician CLIA: [id number] Antistreptolysin O AB <20 <20-200.0 IU/mL P-Comprehensive Metabolic Pa harjit (CMP) Reviewed date:05/06/2025 03:13:52 PM Interpretation: Performing Lab: Notes/Report: Test performed by [facility] [address] [place] [address] , [address], [place] [address] Lizandro Toro MD, Occ Med Physician CLIA: [id number] Sodium 141 135-145 mmol/L Potassium 4.0 3.5-5.3 mmol/L Chloride 104 97-108 mmol/L CO2 24 20-32 mmol/L Glucose 112 65-99 mg/dL BUN 14 6-20 mg/dL Creatinine 0.76 0.50-1.00 mg/dL Calcium 10.0 8.6-10.4 mg/dL eGFR by Creatinine 107 >59 mL/min/1.73m2 Protein 7.1 6.0-8.3 g/dL Albumin 4.6 3.5-5.3 g/dL Alkaline Phosphatase 77 35-121 IU/L ALT (SGPT) 23 <5-47 IU/L AST (SGOT) 18 <5-40 IU/L Bilirubin, Total 0.3 <0.2-1.2 mg/dL A/G Ratio 1.8 1.1-2.5 P-Arthritis Panel, PathGroup Reviewed date:05/06/2025 07:23:35 PM Interpretation: Performing Lab: Notes/Report: Test performed by [facility] [address] [place] [address] , [address], [place] [address] Lizandro Toro MD, Occ Med Physician CLIA: [id number] Erythrocyte Sedimentation Rate (ESR), Automated 19 <26 mm/hr Rheumatoid Factor 16.0 <14.1 IU/mL C-Reactive Protein (CRP) 5.85 <0.50 mg/dL Antinuclear Antibodies (JABIER) Screen, Reflex JABIER 9 Panel Negative Negative This test is performed by Multiplex Bead Immunoassay methodology. Antinuclear Antibodies (JABIER) Result Note SEE COMMENT For positive Autoantibodies, please refer to the interpretive chart here: [email or web address] CCP Antibodies <0.5 <0.5-3.0 U/mL P-Thyroid Antibody Panel (TA BS) Reviewed date:05/06/2025 03:14:43 PM Interpretation: Performing Lab: Notes/Report: Test performed by [facility] [address] [place], [place] [address] , [place] [address] Lizandro Toro MD, Occ Med Physician CLIA: [id number] Thyroid Peroxidase Antibody 13 <9-34 IU/mL An elevated Thyroid Peroxidase Antibody should not be used alone to make the diagnosis of autoimmune thyroid disease. A result of <34 IU/mL does not definitively rule out the possibility of autoimmune thyroid disease. Thyroglobulin Antibody 15.0 <10-115.0 IU/mL The test is performed by the [employer] ECLIA methodology. Values obtained with different assay methods or kits cannot be directly compared. P-TSH Reviewed date:05/06/2025 03:14:12 PM Interpretation: Performing Lab: Notes/Report: Test performed by [facility] [address] [place] [address] , [place] [address] Lizandro Toro MD, Occ Med Physician CLIA: [id number] TSH 0.46 0.43-5.25 mU/L Allergy Footnotes Reviewed date:05/09/2025 03:32:29 PM Interpretation: Performing Lab: Notes/Report: Test performed by [facility] [address] [place] [address] [place] [address] Lizandro Toro MD, Occ Med Physician CLIA: [id number] Allergy Footnotes SEE COMMENT Reference Ranges and Clinical Implications of Specific IgE Class 0 <0.10 kU/L No significant level detected Class 1 0.10-0.34 kU/L Clinical relevance undetermined Class 2 0.35-0.69 kU/L Low level, ongoing sensitization Class 3 0.70-3.49 kU/L Moderate level, stronger ongoing sensitization Class 4 3.50-17.49 kU/L High level of sensitization Class 5 17.50-49.99 kU/L Very high level of sensitization Class 6 >=50.00 kU/L Very high level of sensitization Reason For Referral Diagnosis 1 Acute allergic react ion, initial encounter (T78.40XA) [facility]erring Provider First Name Ana Rosa Referring Provider Last Name Felix Referring Provider Speciality [facility] ctice Referred Provider Surgical Scrub Technician, . Referred Provider Specialty Allergy/Immu nology General Notes first available, Kristi Miller 05/05/2025 01:13:34 PM > faxed to [facility] Referral Priority Routine REASON FOR VISIT allergic reaction Medications Medication SIG (Take, Route, Frequency, Duration) Notes Start Date End Date Status predniSONE 10 MG 2 tabs Orally Once a day at noon; Duration: 5 days for a total of 60mg daily x 5 days 05/05/2025 Active Claritin 10 MG 1 tablet Orally Once a day Active Pepcid 20 MG 1 tablet at bedtime as needed Orally Once a day Active predniSONE 20 MG 1 tablet with food o r milk Orally twice a day Active Benadryl Allergy 25 MG 1 tablet at bedtime as needed Orally Once a day Active Vital Signs Weight 207.4 lbs 05/05/2025 Blood pressure systolic 142 mm Hg 05/05/20 25 Blood pressure diastolic 76 mm Hg 025 Heart Rate 100 /min 05/05/2025 Height 65 in 05/05/2025 BMI 34.51 kg/m2 05/05/2025 Encounters Encounter Location Date Provider Diagnosis [facility] [facility] [address] [place] [id number] 05/05/2025 Ana Rosa Washington Acute allergic reaction, initial encounter T78.40XA Assessments Encounter Date Diagnosis (ICD Code) Assessment Notes Treatment Notes Treatment Clinical Notes Section Notes 05/05/2025 Acute allergic reaction, initial encounter (ICD-10 - T78.40XA) Going to get some labwork done to check for anything autoimmune. Going to go ahead and start the referral to the allergy clinic as it can take some time to get in. She is to continue the pepcid, claritin, and prednisone. We will go ahead and get a Dexa shot in office today. Reviewed CBC in office today. If she is to develop any respiratory symptoms she is to go to the ER. pt notified to stop OBCP Plan Of Treatment Medication Medication Name Sig Start Date Stop Date Notes predniSONE 10 MG 2 tabs Orally Once a day at noon; Duration: 5 days 05/05/2025 for a total of 60mg daily x 5 days Treatment Notes Assessment Notes Acute allergic reaction, initial encount er Going to get some labwork done to check for anything autoimmune. Going to go ahead and start the referral to the allergy clinic as it can take some time to get in. She is to continue the pepcid, claritin, and prednisone. We will go ahead and get a Dexa shot in office today. Reviewed CBC in office today. If she is to develop any respiratory symptoms she is to go to the ER. pt notified to stop OBCP Pending Test Test Name Order Date P-Thyroid Peroxidase Antibody 05/05/2025 Referrals Referral Date Details 05/05/2025 05/05/2025, . Allerg ist Next Appt Details Follow Up: 05/09/2025, Reason : Medications Administered Medication Instructions Date of Administration Dosage Notes Dexamethasone 05/05/2025 1 mL Progress Notes * TEODOROBelkis WARD ZacharyDOB: (30 yo F)Acc No.[id number]:05/05/2025 Progress Notes Patient: Belkis TANG Zachary Provider: MCKENNA Augustin :1995 A ge:29 Y S ex:Female Date:05/05/2025 Address:[address] [place] [address] [place], [id number] Pcp:Odette Jason Subjective: * Chief Complaints: * 1 . Allergic reaction. * HPI: D ermatology: In review of [facility] note, pt is on OBCP with IRON andf continues to take. 29 year old female presents with c/o itching P t here for like redness and itchy on her legs,feet and face. Pt states it started Monday afternoon. Pt states she is hurting all over. H PI: Patient is here today for P t states she wants to get some labs done today . * ROS: A LLERGY: no C ough. n o R unny nose. n o E ar fullness. C ARDIOLOGY: no D izziness. n o C hest pain. D ERMATOLOGY: Rash y es. E NT: Change in voice y es, f eels hoarse. S ore throat?yes. G ASTROENTEROLOGY: no N ausea. n o V omiting. U ROLOGY: no D ifficulty urinating. n o B lood in urine. * Medical History: I nterstitial Cystitis, Polycystic Ovaries, Hyperprolactinemia, S/P Pituitary MRI 2014. * Surgical History: T onsillectomy , Adenoidectomy , Bilateral Ear Tubes x 2 , Sinus Surgery . * Hospitalization/Major Diagno stic Procedure: F all Off Horse- [facility] ER 04/20/2011. * Family History: F ather: alive. M other: alive. 2 brother(s) , 1 sister(s) - healthy. . Mother with AUto immune disease- Zion disease; and aunt has RA. * Social History: C URRENT TOBACCO USE: No . C affeine: yes, frequency:. Past smoking status: no, Smoking status: Does not smoke. * Medications: T aking predniSONE 20 MG Tablet 1 tablet with food or milk Orally twice a day , Taking Benadryl Allergy 25 MG Tablet 1 tablet at bedtime as needed Orally Once a day , Taking Claritin 10 MG Tablet 1 tablet Orally Once a day , Taking Pepcid 20 MG Tablet 1 tablet at bedtime as needed Orally Once a day , Discontinued Medrol 4 MG Tablet Therapy Pack as directed orally daily , Discontinued Methocarbamol 750 MG Tablet 1 tablet Orally three times a day as needed , Medication List reviewed and reconciled with the patient * Allergies: N .K.D.A. Objective: * Vitals: W t: 207.4, Temp: 97.8, BP: 142/76, HR: 100, Nurse: pe, Ht: 65, BMI:34.51. * Examination: G eneral Examination: General Appearance: p leasant, uncomfortable, scratching legs & feet, restless. H EENT: P ERRLA, TM's normal. O ral cavity: m ucosa moist and WNL, no lesions, no erythema. N clifford: n o lymphadenopathy. H eart: R RR. L ungs: n ormal, clear to auscultation. N eurologic Exam: a lert and oriented. S kin:?erythematous, whelps t joel, eccymoses on buttocks, bilateral legs, bilateral arms, bilateral feet, and face.. Assessment: * Assessment: 1. A cute allergic reaction, initial encounter - T78.40XA (Primary) Plan: * Treatment: Value Reference Range G tjonnfnq-Pspuk-2,3-Galactose (Alpha-Gal) IgE <0.1 <0.10-0.34 - kU/L * Ana Rosa Washington 05/06/2025 07:22:35 PM EDT >I spoke with pt andreported results ?LAB: P-Antistreptolysin O AB (Collection Date & Time - 05/05/2025 10:17 AM) ?Negative* Value Reference Range A ntistreptolysin O AB <20 <20-200.0 - IU/mL * Ana Rosa Washington 05/06/2025 03:16:56 PM EDT >I spoke with pt and reported results ?LAB: P-Comprehensive Metabolic Panel (CMP) (Collection Date & Time - 05/05/2025 10:17 AM)* Value Reference Range A /G Ratio 1.8 1.1-2.5 - * A lbumin 4.6 3.5-5.3 - g/dL * A lkaline Phosphatase 77 35-121 - IU/L * A LT (SGPT) 23 <5-47 - IU/L * A ST (SGOT) 18 <5-40 - IU/L * B ilirubin, Total 0.3 <0.2-1.2 - mg/dL * B UN 14 6-20 - mg/dL * C alcium 10.0 8.6-10.4 - mg/dL * C hloride 104 97-108 - mmol/L * C O2 24 20-32 - mmol/L * C reatinine 0.76 0.50-1.00 - mg/dL * G lucose 112 H 65-99 - mg/dL * P otassium 4.0 3.5-5.3 - mmol/L * S odium 141 135-145 - mmol/L * P rotein 7.1 6.0-8.3 - g/dL * e GFR by Creatinine 107 >59 - mL/min/1.73m2 * Ana Rosa Washington 05/06/2025 03:13:30 PM EDT > Provider reviewed results while patient in office. ?LAB: P-Arthritis Panel, PathGroup (Collection Date & Time - 05/05/2025 10:17 AM)* Value Reference Range A ntinuclear Antibodies (JABIER) Result Note SEE COMMENT - * A ntinuclear Antibodies (JABIER) Screen, Reflex JABIER 9 Panel Negative Negative - * C CP Antibodies <0.5 <0.5-3.0 - U/mL * C -Reactive Protein (CRP) 5.85 H <0.50 - mg/dL * E rythrocyte Sedimentation Rate (ESR), Automated 19 <26 - mm/hr * R heumatoid Factor 16.0 H <14.1 - IU/mL * Ana Rosa Washington 05/06/2025 03:16:31 PM EDT >I spoke with pt and reported results ?LAB: P-Thyroid Antibody Panel (TABS) (Collection Date & Time - 05/05/2025 10:17 AM)* Value Reference Range T hyroid Peroxidase Antibody 13 <9-34 - IU/mL * T hyroglobulin Antibody 15.0 <10-115.0 - IU/mL * Ana Rosa Washington 05/06/2025 03:14:32 PM EDT > Provider reviewed results while patient in office. ?LAB: P-TSH (Collection Date & Time - 05/05/2025 10:17 AM)* Value Reference Range T SH 0.46 0.43-5.25 - mU/L * Ana Rosa Washington 05/06/2025 03:14:00 PM EDT > Provider reviewed results while patient in office. ?LAB: CBC Venipuncture (in house) (Collection Date & Time - 05/05/2025)* Value Reference Range w bc 12.6 3.5 - 10 * l ymph 5.5 15 - 50 * m id 8.0 2 - 15 * g ran 86.5 35 - 80 * r bc 4.84 3.5 - 5.5 * h gb 15.1 11.5 - 16.5 * h ct 44.4 35 - 55 * m cv 91.7 75 - 100 * m ch 31.1 25 - 35 * m chc 33.9 31 - 38 * p latlet 411 100 - 400 * Lauryn Cabrera 05/05/2025 1 1:31:43 AM EDT > Provider reviewed results while patient in office.Ana Rosa Washington 05/05/2025 03:47:54 PM EDT > Notes: Going to get some labwork done to check for anything autoimmune. Going to go ahead and startthe referral to the allergy clinic as it can take some time to get in. She is to continue the pepcid, claritin, and prednisone. We will go ahead and get a Dexa shot in office today. Reviewed CBC in office today. If she is to develop any respiratory symptoms she is to go to the ER. pt notified to stop OBCP? Referral To:. Surgical Scrub Technician??Allergy/Immunology ?Reason: * Therapeutic Injections: Dexamethasone : 1 mL (Route: Intramuscular) given by Estella Angela on right gluteus (Acute allergic reaction, initial encounter) * Labs: * L ab: Allergy Footnotes (Collection Date & Time - 05/05/2025 10:17 AM) Value Reference Range A llergy Footnotes SEE COMMENT - * [facility], IT support 05/06/2025 01:10:07 : This order was created by the Interface.Ana Rosa Washington 05/09/2025 03:32:22 PM EDT > * Procedure Codes: 8 5025 CBC WITH AUTO DIFF, 79757 VENIPUNCT, ROUTINE*, J1100 Dexamethasone, 50158 ADMINISTRATION OF INJECTION, 1036F TOBACCO NON-USER * Follow Up: * Images: Billing Information: * Visit Code: 30200 Office Visit, Est Pt., Level 4. Modifiers: 25 * Procedure Codes: 21103 CBC WITH AUTO DIFF. 74173 VENIPUNCT, ROUTINE*. J1100 Dexamethasone. 74339 ADMINISTRATION OF INJECTION. 1036F TOBACCO NON-USER. * Electronic signature of Lien Washington APRN on 10/15/2025 at 11:30 AM EST Sign off status: Pending * Provider: MCKENNA Augustin Date: 0 05/05/2025 Generated for Lorenzo gutierrez/Cheryl/Quintonsmitting on: 1 11:30 AM EST History and Physical Notes * HPI (History of Present Illness) Category Sub-Category Detail Notes Category Not es Dermatology itching Pt here for like redness and itchy on her legs,feet and face. Pt states it started Monday afternoon. Pt states she is hurting all over HPI Patient is here today for Pt sta gregg she wants to get some labs done today Examination Category Sub-Category Detail Notes Category Not es General Examination HEENT: PERRLA, TM's normal Heart: RRR Lungs: normal, clear to aus cultation General Appearance: pleasant, uncomforta ble, scratching legs & feet, restless Skin: erythematous, whelps tender, eccymoses on buttocks, bilateral legs, bilateral arms, bilateral feet, and face. Neurologic Exam: alert and oriented Neck: no lymphadenopathy Oral cavity: mucosa moist and WNL , no lesions, no erythema Consultation Request Notes Referral Date Referring Provider Referred Provider Not es 05/05/2025 Ana Rosa Washington Surgical Scrub Technician, .
--- OUTSIDE RECORDS SUMMARY | 2025-05-06 08:45 | XMS_ITS ---
Author Organization Jesus Address [address] [facility] 36 [facility] [address] [place] [id number] Care Team Providers Care Blade Worker Name Role Phone Odette Jason Primary Care Provider [phone] Ana Rosa Monroe [phone] REASON FOR VISIT injection Encounters Encounter Location Date Provider Diagnosis [facility] [address] [facility] 36 [facility] [address] [place] [id number] 05/06/2025 Ana Rosa Washington Allergic reaction T78.40XA Assessments Encounter Date Diagnosis (ICD Code) Assessment Notes Treatment Notes Treatment Clinical Notes Section Notes 05/06/2025 Allergic reaction (ICD-10 - T78.40XA) To change prednisone to DEXA 4mg tid; will RTC for repeat dexa shot tomorrow if awakens with worsening edema/rash and whelps Plan Of Treatment Treatment Notes Assessment Notes Allergic reaction To change prednisone to DEXA 4mg tid; will RTC for repeat dexa shot tomorrow if awakens with worsening edema/rash and whelps Medications Administered Medication Instructions Date of Administration Dosage Notes Dexamethasone 05/06/2025 1 mL Progress Notes * ALEJANDROBelkis Chilel ZacharyDOB: (30 yo F)Acc No.[id number]:05/06/2025 Patient: Belkis TANG Provider: MCKENNA Augustin :1995 A ge:29 Y S ex:Female Date:05/06/2025 Address:[address] [place], [id number] Pcp:Odette Jason Subjective: * Chief Complaints: * 1 . Injection. * Medical History: Objective: * Vitals: * Examination: G eneral Examination: Skin: S ome rash on abdomen and chest; rash on legs with more of ecchymotic appearance; no whelping. p icture of face this AM shows marked edema; better now this PM in the offce with minimal edema and erythema. Assessment: * Assessment: 1. A llergic reaction - T78.40XA Plan: * Treatment: * Therapeutic Injections: Dexamethasone : 1 mL (Route: Intramuscular) given by Swapna Yu on left gluteus (Allergic reaction) * Procedure Codes: J 1100 Dexamethasone, 58545 ADMINISTRATION OF INJECTION * Images: Billing Information: * Visit Code: * Procedure Codes: J1100 Dexamethasone. 76359 ADMINISTRATION OF INJECTION. * Electronic signature of Lien Washington APRN on 10/15/2025 at 11:31 AM EST Sign off status: Pending * Provider: MCKENNA Augustin Date: 0 05/06/2025 Generated for Lorenzo gutierrez/Cheryl/Paulineitting on: 1 11:31 AM EST History and Physical Notes * Examination Category Sub-Category Detail Notes Category Not es General Examination Skin: Some rash on abdomen and chest; rash on legs with more of ecchymotic appearance; no whelping picture of face this AM shows marked edema; better now this PM in the offce with minimal edema and erythema
--- OUTSIDE RECORDS SUMMARY | 2025-05-09 05:30 | XMS_ITS ---
Author Organization [facility] Address [facility] [address] [place] [id number] Care Team Providers Care Solution Strategist Name Role Phone Odette Jason Primary Care Provider Chan Montelongo Unavailable [phone] Allergies No Known Allergies REASON FOR VISIT follow up Medications Medication SIG (Take, Route, Fr equency, Duration) Notes Start Date End Date Status Benadryl Allergy 25 MG 1 tablet at bedti me as needed Orally Once a day Active Claritin 10 MG 1 tablet Orally Once a day Active Pepcid 20 MG 1 tablet at bedtime as needed Orally Once a day Active dexAMETHasone 4 MG 1 tablet Orally 3 ti mes a day; Duration: 10 days 05/06/2025 Active Problems Problem Type SNOMED Code ICD Code Onset Dates Problem Status W/U Status Risk Notes Problem C-reactive protein abnormal (389780996) CRP elevated (R79.82) Active confirmed Vital Signs Weight 210.4 lbs 05/09/2025 Blood pressure systolic 130 mm Hg 05/09/20 25 Blood pressure diastolic 78 mm Hg 025 Heart Rate 92 /min 05/09/2025 Height 65 in 05/09/2025 BMI 35.01 kg/m2 05/09/2025 Encounters Encounter Location Date Provider Diagnosis [facility] [address] [place] [address] [place] [id number] 05/09/2025 Chan Montelongo Hives L50.9 ; CRP elevated R79.82 and Elevated rheumatoid factor R76.8 Assessments Encounter Date Diagnosis (ICD Code) Assessment Notes Treatment Notes Treatment Clinical Notes Section Notes 05/09/2025 Hives (ICD-10 - L50.9) Plan a 21 day treatement with dexamethasone. 7 days of 4 mg BID, followed by 7 days of 4 mg daily then 7 days of 2 mg daily. Continue antihistamines 05/09/2025 CRP elevated (ICD-10 - R79.82) 05/09/2025 Elevated rheumatoid factor (ICD-10 - R76.8) Plan Of Treatment Treatment Notes Assessment Notes Hives Plan a 21 day treate ment with dexamethasone. 7 days of 4 mg BID, followed by 7 days of 4 mg daily then 7 days of 2 mg daily. Continue antihistamines Next Appt Details Follow Up: 2 Weeks, Reason: Progress Notes * Belkis CHAVEZDOB: (30 yo F)Acc No.[id number]:05/09/2025 Progress Notes Patient: Belkis TANG Provider: Keny Montelongo M.D. :1995 A ge:29 Y S ex:Female Date:05/09/2025 Address:[address] [place], [place] [id number] Pcp:Odette Jason Subjective: * Chief Complaints: * 1 . Follow up. * HPI: D ermatology: 29 year old female presents with c/o rash P t here to f/u. Pt states rash has improved but she is still itchy on arms and legs. Pt is still taking medications rx'd and would like to know if she should stop or continue them. * ROS: C ARDIOLOGY: no D izziness. [...] Hospitalization/Major Diagno stic Procedure: F all Off [facility] ER 04/20/2011. * Family History: F ather: alive. M other: alive. 2 brother(s) , 1 sister(s) - healthy. . Mother with AUto immune disease- Zion disease; and aunt has RA. * Social History: C URRENT TOBACCO USE: No . C affeine: yes. Past smoking status: no, Smoking status: Does not smoke. * Medications: T aking Benadryl Allergy 25 MG Tablet 1 tablet at bedtime as needed Orally Once a day , Taking Claritin 10 MG Tablet 1 tablet Orally Once a day , Taking Pepcid 20 MG Tablet 1 tablet at bedtime as needed Orally Once a day , Taking dexAMETHasone 4 MG Tablet 1 tablet Orally 3 times a day , Discontinued predniSONE 20 MG Tablet 1 tablet with food or milk Orally twice a day , Medication List reviewed and reconciled with the patient * Allergies: N .K.D.A. Objective: * Vitals: W t: 210.4, Temp: 98.1, BP: 130/78, HR: 92, Nurse: telma, Ht: 65, BMI:35.01. * Examination: G eneral Examination: General Appearance: N AD. H eart: R SR. L ungs:?clear to auscultation. S kin: h meghan have improved greatly. Assessment: * Assessment: 1. H meghan - L50.9 (Primary) 2 . C RP elevated - R79.82 3 .?Elevated rheumatoid factor - R76.8 Plan: * Treatment: * Follow Up: 2 Weeks * Images: Billing Information: * Visit Code: 45233 Office Visit, Est Pt., Level 3. * Procedure Codes: * Electronic signature of Laverne Montelongo MD on 10/15/2025 at 11:30 AM EST Sign off status: Pending * Provider: Keny Montelongo M.D. Date: 0 05/09/2025 Generated for Lorenzo gutierrez/Cheryl/Ciara on: 1 11:30 AM EST History and Physical Notes * HPI (History of Present Illness) Category Sub-Category Detail Notes Category Not es Dermatology rash Pt here to f/u. Pt states rash has improved but she is still itchy on arms and legs. Pt is still taking medications rx'd and would like to know if she should stop or continue them Examination Category Sub-Category Detail Notes Category Not es General Examination Heart: RSR Lungs: clear to auscultatio n General Appearance: NAD Skin: hives have improved greatly
--- OUTSIDE RECORDS SUMMARY | 2025-06-04 09:00 | XMS_ITS ---
Author Organization [facility] Address [address] [place] [id number] Care Team Providers Care Cementer Oil Well Name Role Phone Odette Jason Primary Care Provider Chan Montelongo Unavailable [phone] Allergies No Known Allergies Results Component Value Reference Range Notes P-Vitamin B12 Reviewed date:06/06/2025 10:33:57 AM Interpretation:>2000 Performing Lab: Notes/Report: Test performed by [facility] [address] [place] [address] [place] [address] Lizandro Toro MD, Aviation Maintenance Instructor CLIA: [id number] Vitamin B12 >2000 232-1245 pg/mL O-T-Oeqvbkzl Protein (CRP) Reviewed date:06/06/2025 10:33:57 AM Interpretation:Normal Performing Lab: Notes/Report: Test performed by [facility] [address] [place] [address] [address], [place] [address] Lizandro Toro MD, Aviation Maintenance Instructor CLIA: [id number] C-Reactive Protein (CRP) 0.27 <0.50 mg/dL P-Rheumatoid Factor IgG/IgM/ IgA Subtypes Reviewed date:06/06/2025 10:33:58 AM Interpretation:Negative Performing Lab: Notes/Report: Test performed by [facility] [address] [place] [address] [address], [place] [address] Lizandro Toro MD, Aviation Maintenance Instructor CLIA: [id number] Rheumatoid Factor, IgM Negative Negative This test was developed and its performance characteristics are determined by [facility] clinical laboratories. The following results were obtained with the [employer] QUANTA Lite RF IgG, IgA, and IgM JUSTYNA. RF immunoglobulin values obtained with different engraver wood's assay methods may not be used interchangeably. The magnitude of the reported immunoglobulin levels cannot be correlated to an endpoint titer. Rheumatoid Factor, IgG Negative Negative This test was developed and its performance characteristics are determined by [facility] clinical laboratories. The following results were obtained with the [employer] QUANTA Lite RF IgG, IgA, and IgM JUSTYNA. RF immunoglobulin values obtained with different engraver wood's assay methods may not be used interchangeably. The magnitude of the reported immunoglobulin levels cannot be correlated to an endpoint titer. Rheumatoid Factor, IgA Negative Negative This test was developed and its performance characteristics are determined by [facility] clinical laboratories. The following results were obtained with the [employer] QUANTA Lite RF IgG, IgA, and IgM JUSTYAN. RF immunoglobulin values obtained with different engraver wood's assay methods may not be used interchangeably. The magnitude of the reported immunoglobulin levels cannot be correlated to an endpoint titer. P-Vitamin D 25-Hydroxy Reviewed date:06/06/2025 10:33:58 AM Interpretation:27.7 Performing Lab: Notes/Report: Test performed by [facility] [address] [place] [address] , [address], [place] [address] Lizandro Toro MD, Aviation Maintenance Instructor CLIA: [id number] Vitamin D 25-Hydroxy 27.7 30.0-100.0 ng/mL Interpretation of Vitamin D 25 OH: < 20 ng/mL - Deficiency 20 - 29 ng/mL - Insufficiency 30 - 100 ng/mL - Sufficiency > 100 ng/mL - Super-therapeutic- toxicity may occur above this level. Clinical correlation required. REASON FOR VISIT 2 Week Follow Up Problems Problem Type SNOMED Code ICD Code Onset Dates Problem Status W/U Status Risk Notes Problem C-reactive protein abnormal (908309569) Elevated C-reactive protein (CRP) (R79.82) Active confirmed Vital Signs Weight 208 lbs 06/04/2025 Blood pressure systolic 132 mm Hg 06/04/20 25 Blood pressure diastolic 78 mm Hg 025 Heart Rate 103 /min 06/04/2025 Height 65 in 06/04/2025 BMI 34.61 kg/m2 06/04/2025 Encounters Encounter Location Date Provider Diagnosis [facility] [address] [place] [id number] 06/04/2025 Chan Montelongo Hives of unknown katherine gin L50.9 ; Elevated C-reactive protein (CRP) R79.82 ; Vitamin D deficiency E55.9 ; Other fatigue R53.83 and Rheumatoid factor positive R76.8 Assessments Encounter Date Diagnosis (ICD Code) Assessment Notes Treatment Notes Treatment Clinical Notes Section Notes 06/04/2025 Hives of unknown origin (ICD-10 - L50.9) Resolved 06/04/2025 Elevated C-reactive protein (CRP) (ICD-10 - R79.82) 06/04/2025 Vitamin D deficiency (ICD-10 - E55.9) 06/04/2025 Other fatigue (ICD-10 - R53.83) 06/04/2025 Rheumatoid factor positive (ICD-10 - R76.8) Plan Of Treatment Treatment Notes Assessment Notes Hives of unknown origin Resolved Next Appt Details Follow Up: via phone to repo rt test results, Reason: Progress Notes * TEODOROBelkis WARD ZacharyDOB: (30 yo F)Acc No.[id number]:06/04/2025 Progress Notes Patient: Belkis TANG Provider: Keny Montelongo M.D. :1995 A ge:29 Y S ex:Female Date:06/04/2025 Address:[address] [place] [address] [place], [id number] Pcp:Odette Jason Subjective: * Chief Complaints: * 1 . 2 Week Follow Up. * HPI: D ermatology: 29 year old female presents with c/o rash P t here for 2 week f/u. Pt states rash has improved and states she is supposed to have repeat labs today. * ROS: C ARDIOLOGY: no D izziness. n o C hest pain. C ONSTITUTIONAL: Fatigue yes. G ASTROENTEROLOGY: no N ausea. n o V omiting. U ROLOGY: no D ifficulty urinating. n o B lood in urine. * Medical History: I nterstitial Cystitis, Polycystic Ovaries, Hyperprolactinemia, S/P Pituitary MRI 2014. * Surgical History: T onsillectomy , Adenoidectomy , Bilateral Ear Tubes x 2 , Sinus Surgery . * Hospitalization/Major Diagno stic Procedure: F all Off Horse- [facility] ER 04/20/2011. * Family History: F ather: alive. M other: alive. 2 brother(s) , 1 sister(s) - healthy. . Mother with AUto immune disease- Zion disease; and aunt has RA. * Social History: C URRENT TOBACCO USE: No . C affeine: yes. Past smoking status: no, Smoking status: Does not smoke. * Medications: D iscontinued dexAMETHasone 4 MG Tablet 1 tablet Orally 3 times a day , Discontinued Benadryl Allergy 25 MG Tablet 1 tablet at bedtime as needed Orally Once a day , Discontinued Claritin 10 MG Tablet 1 tablet Orally Once a day , Discontinued Pepcid 20 MG Tablet 1 tablet at bedtime as needed Orally Once a day , Medication List reviewed and reconciled with the patient * Allergies: N .K.D.A. Objective: * Vitals: W t: 208, Temp: 98.0, BP: 132/78, HR: 103, Nurse: telma, Ht: 65, BMI:34.61. * Examination: G eneral Examination: General Appearance: N AD. H eart: R SR. L ungs:?clear to auscultation. S kin: n ormal, no rash. P eripheral pulses: n ormal (2+) bilaterally. E xtremities: n o leg edema. Assessment: * Assessment: 1. H meghan of unknown origin - L50.9 (Primary) 2 . E levated C-reactive protein (CRP) - R79.82 3 . V itamin D deficiency - E55.9 4 . O ther fatigue - R53.83 5 . R heumatoid factor positive - R76.8 Plan: * Treatment: 2. E levated C-reactive protein (CRP) L AB: M-Z-Qqlakcuq Protein (CRP) (Collection Date & Time - 06/04/2025 01:20 PM) N ormal Value Reference Range C -Reactive Protein (CRP) 0.27 <0.50 - mg/dL * Bethany Cevallos 06/06/2025 10:3 3:51 AM EDT > See phone encounter 3.?Vitamin D deficiency?LAB: P-Vitamin D 25-Hydroxy (Collection Date & Time - 06/04/2025 01:20 PM)? 27.7* Value Reference Range V itamin D 25-Hydroxy 27.7 L 30.0-100.0 - ng/mL * Bethany Cevallos 06/06/2025 10:3 3:51 AM EDT > See phone encounter 4.?Other fatigue?LAB: P-Vitamin B12 (Collection Date & Time - 06/04/2025 01:20 PM)?>2000* Value Reference Range V itamin B12 >2000 H 232-1245 - pg/mL * Bethany Cevallos 06/06/2025 10:3 3:51 AM EDT > See phone encounter 5.?Rheumatoid factor positive?LAB: P-Rheumatoid Factor IgG/IgM/IgA Subtypes (Collection Date & Time - 06/04/2025 01:20 PM)?Negative* Value Reference Range R heumatoid Factor, IgA Negative Negative - * R heumatoid Factor, IgG Negative Negative - * R heumatoid Factor, IgM Negative Negative - * Bethany Cevallos 06/06/2025 10:3 3:51 AM EDT > See phone encounter * Follow Up: v ia phone to report test results * Images: Billing Information: * Visit Code: 78014 Office Visit, Est Pt., Level 4. * Procedure Codes: * Electronic signature of Laverne Montelongo MD on 10/15/2025 at 11:31 AM EST Sign off status: Pending * Provider: Keny Montelongo M.D. Date: 0 06/04/2025 Generated for Kevini ng/Maureeng/eTransmitting on: 1 11:31 AM EST History and Physical Notes * HPI (History of Present Illness) Category Sub-Category Detail Notes Category Not es Dermatology rash Pt here for 2 we ek f/u. Pt states rash has improved and states she is supposed to have repeat labs today Examination Category Sub-Category Detail Notes Category Not es General Examination Heart: RSR Lungs: clear to auscultatio n Extremities: no leg edema General Appearance: NAD Skin: normal, no rash Peripheral pulses: normal (2+) bilatera lly
--- OUTSIDE RECORDS SUMMARY | 2025-08-08 09:00 | XMS_ITS ---
Author Organization [facility] Address [address] [place] [id number] Care Team Providers Care Watch And Clock Repair Clerk Name Role Phone Odette Jason Primary Care Provider Allergies No Known Allergies Results Component Value Reference Range Notes Glucose (In-House) Reviewed date:08/08/2025 03:56:02 PM Interpretation:101 Performing Lab: Notes/Report: 101 blood glucose 101 74 - 106 mg/dL Glycohemoglobin A1c (in hous e) Reviewed date:08/08/2025 03:56:02 PM Interpretation:4.8% Performing Lab: Notes/Report: 4.8% glycohemoglobin 4.8% 5 - 6.5 % P-Vitamin D 25-Hydroxy Reviewed date:08/13/2025 11:08:07 AM Interpretation:Normal Performing Lab: Notes/Report: Test performed by [facility] [address] [place] [address] , [address], [place] [address] Lizandro Toro MD, Ruffling Machine Operator CLIA: [id number] Vitamin D 25-Hydroxy 63.1 30.0-100.0 ng/mL Interpretation of Vitamin D 25 OH: < 20 ng/mL - Deficiency 20 - 29 ng/mL - Insufficiency 30 - 100 ng/mL - Sufficiency > 100 ng/mL - Super-therapeutic- toxicity may occur above this level. Clinical correlation required. Reason For Referral Diagnosis 1 Rheumatoid factor po sitive (R76.89) [facility] Referring Provider First Name Odette Referring Provider Last Name Casie Referring Provider Speciality Physician Corporate Operations Compliance Manager Referred Provider Specialty Rheumatology General Notes Odette Jason 02:06:54 PM >Pt needs an appt with Em Botello Brynn 08/11/2025 11:15:55 AM > submitted through Rheumatology website Referral Priority Routine REASON FOR VISIT blood sugar elevated Medications Medication SIG (Take, Route, Frequency, Duration) Notes Start Date End Date Status Vitamin D3 1.25 MG (89000 UT) 1 capsule Orally weekly 06/06/2025 Acti ve Problems Problem Type SNOMED Code ICD Code Onset Dates Problem Status W/U Status Risk Notes Problem Vitamin D deficiency (81465721) Vitamin D deficiency (E55.9) Active confirmed Vital Signs Weight 211.6 lbs 08/08/2025 Blood pressure systolic 130 mm Hg 08/08/20 Blood pressure diastolic 70 mm Hg 025 Heart Rate 78 /min 08/08/2025 Height 65 in 08/08/2025 BMI 35.21 kg/m2 08/08/2025 Encounters Encounter Location Date Provider Diagnosis [facility] [address] [place] [id number] 08/08/2025 Odette Jason Impaired fasting glucose R73.01 ; Vitamin D deficiency E55.9 and Rheumatoid factor positive R76.89 Assessments Encounter Date Diagnosis (ICD Code) Assessment Notes Treatment Notes Treatment Clinical Notes Section Notes 08/08/2025 Impaired fasting glucose (ICD-10 - R73.01) 08/08/2025 Vitamin D deficiency (ICD-10 - E55.9) 08/08/2025 Rheumatoid factor positive (ICD-10 - R76.89) Plan Of Treatment Referrals Referral Date Details 08/08/2025 08/08/2025 Next Appt Details Follow Up: via phone to repo rt test results, Reason: Progress Notes * Belkis CHAVEZDOB: (30 yo F)Acc No.[id number]:08/08/2025 Progress Notes Patient: Belkis TANG Provider: LIZBETH Pierce :1995 A ge:29 Y S ex:Female Date:08/08/2025 Address:[address] [place] [address] [id number] Subjective: * Chief Complaints: * 1 . Blood sugar elevated. * HPI: E ndocrinology: 29 year old female presents with c/o Blurred Vision. c/o Recent Blood Sugars P t sts she believes it started in April and sts sometimes in the mornings after eating meals her vision becomes blurry. Pt sts she did have an eye exam on Monday and sts everything went well with that. Pt sts she would like to see if she would be covered for weight loss medication. * ROS: C ARDIOLOGY: no D izziness. [...] Diagno stic Procedure: F all Off [facility]- [facility] ER 04/20/2011. * Family History: F ather: alive. M other: alive. 2 brother(s) , 1 sister(s) - healthy. . Mother with AUto immune disease- Zion disease; and aunt has RA. * Social History: C URRENT TOBACCO USE: No . C affeine: yes. Past smoking status: no, Smoking status: Does not smoke. * Medications: T aking Vitamin D3 1.25 MG (82337 UT) Capsule 1 capsule Orally weekly , Medication List reviewed and reconciled with the patient * Allergies: N .K.D.A. Objective: * Vitals: W t: 211.6, Temp: 98.6, BP: 130/70, HR: 78, Nurse: , Ht: 65, BMI:35.21. * Examination: G eneral Examination: General Appearance: N AD. H EENT: u nremarkable.?Oral cavity: n o lesions, mucosa moist and WNL, no erythema. N clifford: s upple, no lymphadenopathy. C hest: n ormal shape and expansion. H eart: R SR. L ungs: c lear to auscultation. A bdomen: b owel sounds present, soft and nontender. N eurologic Exam: I ntact, gait normal. S kin: n ormal, no rash. P eripheral pulses: n ormal (2+) bilaterally. E xtremities: n o leg edema. Assessment: * Assessment: 1. I mpaired fasting glucose - R73.01 (Primary) 2 . V itamin D deficiency - E55.9 3 . R heumatoid factor positive - R76.89 Plan: * Treatment: Value Reference Range b lood glucose 101 74 - 106 mg/dL * Brandie Shell 08/08/2025 02: 18:22 PM EDT > Provider reviewed results while patient in office. ?LAB: Glycohemoglobin A1c (in house) (Collection Date & Time - 08/08/2025)? 4.8%* Value Reference Range g lycohemoglobin 4.8% 5 - 6.5 % * Brandie Shell 08/08/2025 02: 22:40 PM EDT > Provider reviewed results while patient in office. 2.?Vitamin D deficiency?LAB: P-Vitamin D 25-Hydroxy (Collection Date & Time - 08/08/2025 01:11 PM)? Normal* Value Reference Range V itamin D 25-Hydroxy 63.1 30.0-100.0 - ng/mL * Kirsten Candelario 08/13/2025 11 :07:58 AM EDT > See phone encounter 3.?Rheumatoid factor positive? Referral To:Rheumatology ?Reason: * Procedure Codes: 3 6416 CAPILLARY BLOOD DRAW, 24214 GLYCATED HEMOGLOBIN TEST, Modifiers: QW , 81496 GLUCOSE TEST, 3044F HG A1C LEVEL LT 7.0% * Follow Up: v ia phone to report test results * Images: Billing Information: * Visit Code: 23493 Office Visit, Est Pt., Level 4. * Procedure Codes: 19805 CAPILLARY BLOOD DRAW. 71249 GLYCATED HEMOGLOBIN TEST. Modifiers: QW 60340 GLUCOSE TEST. 3044F HG A1C LEVEL LT 7.0%. * Electronic signature of LIZBETH Agee on 10/15/2025 at 11:31 AM EST Sign off status: Pending * Provider: LIZBETH Pierce Date: 1 Generated for Kevini matt/Cheryl/eTransmitting on: 1 11:31 AM EST History and Physical Notes * HPI (History of Present Illness) Category Sub-Category Detail Notes Category Not es Endocrinology Recent Blood Sugars Pt sts she b elieves it started in April and sts sometimes in the mornings after eating meals her vision becomes blurry. Pt sts she did have an eye exam on Monday and sts everything went well with that. Pt sts she would like to see if she would be covered for weight loss medication Blurred Vision Examination Category Sub-Category Detail Notes Category Not es General Examination HEENT: unremarkable Heart: RSR Lungs: clear to auscultatio n Abdomen: bowel sounds present , soft and nontender Extremities: no leg edema General Appearance: NAD Skin: normal, no rash Neurologic Exam: Intact, gait normal Neck: supple, no lymphaden opathy Oral cavity: no lesions, mucosa m oist and WNL, no erythema Peripheral pulses: normal (2+) bilatera lly Chest: normal shape and exp ansion Consultation Request Notes Referral Date Referring Provider Referred Provider Not es 08/08/2025 Odette Jason ,
--- NOTE | 2025-10-15 | XR_ITS ---
FINAL REPORT CLINICAL HISTORY: .recently diagnosed with rheumatoid arthritis FINDINGS: AP, oblique, and lateral views of the right wrist were obtained. There is no prior exam for comparison. There is no acute fracture or dislocation. The joint spaces are preserved. There is normal mineralization of the bones. No evidence of bony erosion. The soft tissues are normal. IMPRESSION: No acute osseous abnormality of the right wrist. Reviewed, Interpreted and Dictated by Katy Arita MD Transcribed by Ping Ellison Authenticated and [facility]
--- NOTE | 2025-10-15 | XR_ITS ---
FINAL REPORT CLINICAL HISTORY: .recently diagnosed with rheumatoid arthritis FINDINGS: AP, lateral and oblique views of the right hand were obtained. There is no prior exam for comparison. There is no acute fracture or dislocation. The joint spaces are preserved. There is normal mineralization of the bones. No evidence of bony erosion. The soft tissues are normal. IMPRESSION: No acute osseous abnormality of the right hand. Reviewed, Interpreted and Dictated by Katy Arita MD Transcribed by Ping Ellison Authenticated and [facility]
--- NOTE | 2025-10-15 | XR_ITS ---
FINAL REPORT CLINICAL HISTORY: .recently diagnosed with rheumatoid arthritis FINDINGS: AP, oblique, and lateral views of the right ankle were obtained. There is no prior exam for comparison. There is no fracture or dislocation. The ankle mortise is intact. There is normal mineralization of the bones. No evidence of bony erosion. Soft tissues are unremarkable. IMPRESSION: No acute osseous abnormality of the right ankle. Reviewed, Interpreted and Dictated by Katy Arita MD Transcribed by Ping Ellison Authenticated and [facility]
--- NOTE | 2025-10-15 | XR_ITS ---
FINAL REPORT CLINICAL HISTORY: .recently diagnosed with rheumatoid arthritis COMPARISON: 10/11/2024 FINDINGS: AP, oblique, and lateral views of the left ankle were obtained. There is no fracture or dislocation. The ankle mortise is intact. There is normal mineralization of the bones. No evidence of bony erosion. Soft tissues are unremarkable. IMPRESSION: No acute osseous abnormality of the left ankle. Reviewed, Interpreted and Dictated by Katy Arita MD Transcribed by Ping Ellison Authenticated and . [facility]
--- NOTE | 2025-10-15 | XR_ITS ---
FINAL REPORT CLINICAL HISTORY: SICCA SYNDROME,URTICARIA, ANGIOEUROTIC EDEMA, recently diagnosed with rheumatoid arthritis FINDINGS: AP, oblique, and lateral views of the left hand were obtained. There is no prior exam for comparison. There is no acute fracture of the left hand. The joint spaces are preserved. There is normal mineralization of the bones. No evidence of bony erosion. The soft tissues are normal. IMPRESSION: No acute osseous abnormality of the left hand. Reviewed, Interpreted and Dictated by Katy Arita MD Transcribed by Ping Ellison Authenticated and [facility]
--- NOTE | 2025-10-15 | XR_ITS ---
FINAL REPORT CLINICAL HISTORY: .recently diagnosed with rheumatoid arthritis FINDINGS: AP, oblique, and lateral views of the left wrist were obtained. There is no prior exam for comparison. There is no acute fracture or dislocation. The joint spaces are preserved. There is normal mineralization of the bones. No evidence of bony erosion. The soft tissues are normal. IMPRESSION: No acute osseous abnormality of the left wrist. Reviewed, Interpreted and Dictated by Katy Arita MD Transcribed by Ping Ellison Authenticated and . [facility]
--- NOTE | 2025-10-15 | XR_ITS ---
FINAL REPORT CLINICAL HISTORY: .recently diagnosed with rheumatoid arthritis FINDINGS: AP, oblique and lateral views of the right foot were obtained. There is no prior exam for comparison. There is no acute fracture or dislocation. The joint spaces are preserved. There is normal mineralization of the bones. No evidence of bony erosion. Soft tissues are unremarkable. IMPRESSION: No acute osseous abnormality of the right foot. Reviewed, Interpreted and Dictated by Katy Arita MD Transcribed by Ping Ellison Authenticated and [facility]
--- NOTE | 2025-10-15 | XR_ITS ---
FINAL REPORT CLINICAL HISTORY: .recently diagnosed with rheumatoid arthritis COMPARISON: 10/11/2024 FINDINGS: AP, oblique and lateral views of the left foot were obtained. There is no acute fracture or dislocation. The joint spaces are preserved. There is normal mineralization of the bones. No evidence of bony erosion. Soft tissues are unremarkable. IMPRESSION: No acute osseous abnormality of the left foot. Reviewed, Interpreted and Dictated by Katy Arita MD Transcribed by Ping Ellison Authenticated and [facility]
--- OUTSIDE RECORDS SUMMARY | 2025-10-15 11:30 | XMS_ITS | Patient Health Record ---
[facility] [address] [facility] [address] [place] [id number] Care Team Providers Care Halal Butcher Name Role Phone Odette Jason Primary Care Provider [phone] Chan Montelongo Unavailable [phone] Ana Rosa Washington Unavailable [phone] Allergies No Known Allergies Results Component Value Reference Range Notes P-TSH Reviewed date:05/06/2025 03:14:12 PM Interpretation: Performing Lab: Notes/Report: Test performed by [facility] [address] [place] [address] , [facility] [place] [place] [address] Lizandro Toro MD, [place] CLIA: [id number] TSH 0.46 0.43-5.25 mU/L P-Thyroid Antibody Panel (TA BS) Reviewed date:05/06/2025 03:14:43 PM Interpretation: Performing Lab: Notes/Report: Test performed by [facility] [address] [place], [place] [address] [place] , [address], [place] [address] Lizandro Toro MD, [place]ver CLIA: [id number] Thyroid Peroxidase Antibody 13 <9-34 IU/mL An elevated Thyroid Peroxidase Antibody should not be used alone to make the diagnosis of autoimmune thyroid disease. A result of <34 IU/mL does not definitively rule out the possibility of autoimmune thyroid disease. Thyroglobulin Antibody 15.0 <10-115.0 IU/mL The test is performed by the Margie ECLIA methodology. Values obtained with different assay methods or kits cannot be directly compared. [facility], [facility] Reviewed date:05/06/2025 07:23:35 PM Interpretation: Performing Lab: Notes/Report: Test performed by [facility] [address] [place] [address] , [address], [place] [address] Lizandro Toro MD, [place]ver CLIA: [id number] Erythrocyte Sedimentation Rate (ESR), Automated 19 <26 mm/hr Rheumatoid Factor 16.0 <14.1 IU/mL C-Reactive Protein (CRP) 5.85 <0.50 mg/dL Antinuclear Antibodies (JABIER) Screen, Reflex JABIER 9 Panel Negative Negative This test is performed by Multiplex Bead Immunoassay methodology. Antinuclear Antibodies (JABIER) Result Note SEE COMMENT For positive Autoantibodies, please refer to the interpretive chart here: [email or web address] CCP Antibodies <0.5 <0.5-3.0 U/mL P-Comprehensive Metabolic Pa harjit (CMP) Reviewed date:05/06/2025 03:13:52 PM Interpretation: Performing Lab: Notes/Report: Test performed by [facility] [address] [place] [address] , [address], [place] [address] Lizandro Toro MD, [place]ver CLIA: [id number] Sodium 141 135-145 mmol/L Potassium 4.0 3.5-5.3 [...] 0.3 <0.2-1.2 mg/dL A/G Ratio 1.8 1.1-2.5 P-Antistreptolysin O AB Reviewed date:05/06/2025 07:22:22 PM Interpretation:Negative Performing Lab: Notes/Report: Test performed by [facility] [address] [place] [address] , [address], [place] [address] Lizandro Toro MD, Paver CLIA: [id number] Antistreptolysin O AB <20 <20-200.0 IU/mL P-Alpha Gal, Galactose-Alpha -1,3-Galactose (Alpha-Gal) IgE Reviewed date:05/06/2025 07:23:03 PM Interpretation:<o.1 Performing Lab: Notes/Report: Test performed by [facility] [address] [place] [address] , [address], [place] [address] Lizandro Toro MD, [place]ver CLIA: [id number] Allergen, Food, Alpha Galactose (Alpha-Gal) IgE <0.1 <0.10-0.34 kU/L CBC Venipuncture (in house) Reviewed date:05/05/2025 03:47:57 [...] - 38 platlet 411 100 - 400 P-Vitamin D 25-Hydroxy Reviewed date:06/06/2025 10:33:58 AM Interpretation:27.7 Performing Lab: Notes/Report: Test performed by [facility] [address] [place] [address] , [address], [place] [address] Lizandro Toro MD, Paver CLIA: [id number] Vitamin D 25-Hydroxy 27.7 30.0-100.0 ng/mL Interpretation of Vitamin D 25 OH: < 20 ng/mL - Deficiency 20 - 29 ng/mL - Insufficiency 30 - 100 ng/mL - Sufficiency > 100 ng/mL - Super-therapeutic- toxicity may occur above this level. Clinical correlation required. P-Rheumatoid Factor IgG/IgM/ IgA Subtypes Reviewed date:06/06/2025 10:33:58 AM Interpretation:Negative Performing Lab: Notes/Report: Test performed by [facility] [address] [place] [address] , [address], [place] [address] Lizandro Toro MD, [place] CLIA: [id number] Rheumatoid Factor, IgM Negative Negative This test was developed and its performance characteristics are determined by [employer] clinical laboratories. The following results were obtained with the Inova QUANTA Lite RF IgG, IgA, and IgM JUSTYNA. RF immunoglobulin values obtained with different rn plastic surgery's assay methods may not be used interchangeably. The magnitude of the reported immunoglobulin levels cannot be correlated to an endpoint titer. Rheumatoid Factor, IgG Negative Negative This test was developed and its performance characteristics are determined by [employer] clinical laboratories. The following results were obtained with the Inova QUANTA Lite RF IgG, IgA, and IgM JUSTYNA. RF immunoglobulin values obtained with different rn plastic surgery's assay methods may not be used interchangeably. The magnitude of the reported immunoglobulin levels cannot be correlated to an endpoint titer. Rheumatoid Factor, IgA Negative Negative This test was developed and its performance characteristics are determined by [employer] clinical laboratories. The following results were obtained with the Inova QUANTA Lite RF IgG, IgA, and IgM JUSTYNA. RF immunoglobulin values obtained with different rn plastic surgery's assay methods may not be used interchangeably. The magnitude of the reported immunoglobulin levels cannot be correlated to an endpoint titer. I-L-Jwluoarx Protein (CRP) Reviewed date:06/06/2025 10:33:57 AM Interpretation:Normal Performing Lab: Notes/Report: Test performed by [facility] [address] [place] [address] , [place] [address] Lizandro Toro MD, Paver CLIA: [id number] C-Reactive Protein (CRP) 0.27 <0.50 mg/dL P-Vitamin B12 Reviewed date:06/06/2025 10:33:57 AM Interpretation:>2000 Performing Lab: Notes/Report: Test performed by [facility] [address] [place] [address] , [address], [place] [address] Lizandro Toro MD, Paver CLIA: [id number] Vitamin B12 >2000 232-1245 pg/mL MRI : Spine, Cervical, witho ut contrast Reviewed date:12/27/2024 05:10:51 PM Interpretation: Performing Lab: Notes/Report: Glucose (In-House) Reviewed date:08/08/2025 03:56:02 PM Interpretation:101 Performing Lab: Notes/Report: 101 blood glucose 101 74 - 106 mg/dL Glycohemoglobin A1c (in hous e) Reviewed date:08/08/2025 03:56:02 PM Interpretation:4.8% Performing Lab: Notes/Report: 4.8% glycohemoglobin 4.8% 5 - 6.5 % P-Vitamin D 25-Hydroxy Reviewed date:08/13/2025 11:08:07 AM Interpretation:Normal Performing Lab: Notes/Report: Test performed by [facility] [address] [place] [address] , [address], [place] [address] Lizandro Toro MD, Paver CLIA: [id number] Vitamin D 25-Hydroxy 63.1 30.0-100.0 ng/mL Interpretation of Vitamin D 25 OH: < 20 ng/mL - Deficiency 20 - 29 ng/mL - Insufficiency 30 - 100 ng/mL - Sufficiency > 100 ng/mL - Super-therapeutic- toxicity may occur above this level. Clinical correlation required. Allergy Footnotes Reviewed date:05/09/2025 03:32:29 PM Interpretation: Performing Lab: Notes/Report: Test performed by [facility] [address] [place], [place] [address] [place] , [address], [place] [id number] Lizandro Toro MD, Paver CLIA: [id number] Allergy Footnotes SEE COMMENT Reference Ranges and [...] of sensitization Reason For Referral Diagnosis 1 Neck pain (M54.2) Diagnosis 2 Paresthesia of left arm (R20.2) Diagnosis 3 Neck muscle spasm (M 62.838) Referral Organization [facility] Referring Provider First Name Odette Referring Provider Last Name Casie Referring Provider Speciality Physician Kosher Dietary Service Manager Referred Provider Specialty Physical The rapist General Notes Kristi Strickland 12/31/19 1:21:54 PM > faxed to [facility] PT Referral Priority Routine Diagnosis 1 Acute allergic react ion, initial encounter (T78.40XA) Referral Organization [facility] Referring Provider First Name Ana Rosa Referring Provider Last Name Felix Referring Provider Speciality Family Pra ctice Referred Provider Pharmacy Operations Specialist, . Referred Provider Specialty Allergy/Immu nology General Notes first available, Kristi Miller 05/05/2025 01:13:34 PM > faxed to [facility] Referral Priority Routine Diagnosis 1 Rheumatoid factor po sitive (R76.89) [facility] Referring Provider First Name Odette Referring Provider Last Name Casie Referring Provider Speciality Physician Kosher Dietary Service Manager Referred Provider Specialty Rheumatology General Notes Odette Jason 02:06:54 PM >Pt needs an appt with Em Botello Brynn 08/11/2025 11:15:55 AM > submitted through Rheumatology website Referral Priority Routine Medications Medication SIG (Take, Route, Frequency, Duration) Notes Start Date End Date Status Vitamin D3 1.25 MG (28814 UT) 1 capsule Orally weekly 06/06/2025 Acti ve Immunizations Vaccine Route Administration Date Status Comme nts HEPB VACC PED/ADOL DOSE IM IM Intramuscular 1993 Adm inistered HEPB VACC PED/ADOL DOSE IM IM Intramuscular 1993 Adm inistered HEPB VACC PED/ADOL DOSE IM IM Intramuscular 09/28/1994 Adm inistered HIB IM Intramuscular 1993 Administered HIB IM Intramuscular 01/07/1994 Administered HIB IM Intramuscular 03/04/1994 Administered HIB IM Intramuscular 12/26/1994 Administered IPV IM Intramuscular 1993 Administered IPV IM Intramuscular 01/07/1994 Administered IPV IM Intramuscular 03/04/1994 Administered IPV IM Intramuscular 09/23/1997 Administered MENINGOCOCCAL VACCINE, SC IM Intramuscular 03/29/2007 Admi nistered MMR SC Subcutaneous 12/26/1994 Administered MMR SC Subcutaneous 09/23/1997 Administered Tetanus Dtap-Daptacel (under 7yrs) IM Intramuscular 1993 Administered Tetanus Dtap-Daptacel (under 7yrs) IM Intramuscular 01/07/1994 Administered Tetanus Dtap-Daptacel (under 7yrs) IM Intramuscular 03/04/1994 Administered Tetanus Dtap-Daptacel (under 7yrs) IM Intramuscular 12/26/1994 Administered Tetanus Dtap-Daptacel (under 7yrs) IM Intramuscular 09/23/1997 Administered Tetanus Tdap-Adacel (over 7yrs) IM Intramuscular 05/24/2005 Administered Tetanus Tdap-Adacel (over 7yrs) IM Intramuscular 12/28/2015 Administered xGardasil IM Intramuscular 12/12/2006 Administered xGardasil IM Intramuscular 02/09/2007 Administered xGardasil IM Intramuscular 06/11/2007 Administered Problems Problem Type SNOMED Code ICD Code Onset Dates Problem Status W/U Status Risk Notes Problem Depressive disorder (39361512) Depressive disorder NEC (311) Active confirmed Problem Polycystic ovary syndrome (disorder) (242412909) Polycystic ovaries (256.4) Active confirmed Problem Vitamin D deficiency (94524946) Vitamin D deficiency (E55.9) Active confirmed Problem Paresthesia (31383490) Paresthesia (R20.2) Active confirmed Problem Cervical radiculopathy (60373999) Cervical radiculopathy (M54.12) Active confirmed Problem Skin sensation disturbance (61191457) Paresthesia of left arm (R20.2) Active confirmed Problem Irritable bowel syndrome with diarrhea (180727545) Irritable bowel syndrome with diarrhea (K58.0) Active confirmed Problem C-reactive protein abnormal (768172944) Elevated C-reactive protein (CRP) (R79.82) Active confirmed Problem Neck pain (78665308) Neck pain (M54.2) Active confirmed Problem Excessive and frequent menstruation (681565507) Menorrhagia with regular cycle (N92.0) Active confirmed Problem Refractory migraine with aura (213795539) Intractable migraine with aura without status migrainosus (G43.119) Active confirmed Problem Vitamin D deficiency (44434115) Low vitamin D level (E55.9) Active confirmed Problem Unable to concentrate (finding) (04865502) Difficulty concentrating (R41.840) Active confirmed Problem Obesity (965936069) Obesity (BMI 35.0-39.9 without comorbidity) (E66.9) Active confirmed Problem C-reactive protein abnormal (496040803) CRP elevated (R79.82) Active confirmed Vital Signs Heart Rate 78 /min 08/08/2025 Blood pressure diastolic 70 mm Hg 08/08/2025 Height 65 in 08/08/2025 Blood pressure systolic 130 mm Hg 08/08/2025 Weight 211.6 lbs 08/08/2025 BMI 35.21 kg/m2 08/08/2025 Encounters Encounter Location Date Provider Diagnosis [facility] [address] [facility] [address] [place], [place] [id number] 12/18/2024 Odette Crowdy Neck pain M54.2 and Cervical radiculopathy M54.12 [facility] [address] [facility] [address] [place], [place] [id number] 05/05/2025 Ana Rosa [place] Acute allergic reaction, initial encounter T78.40XA [facility] [address] [place], [place] [id number] 05/06/2025 Ana Rosa [place] Allergic reaction T78.40XA [facility] [address] [place], [place] [id number] 05/09/2025 Chan [place] Hives L50.9 ; CRP elevated R79.82 and Elevated rheumatoid factor R76.8 [facility] [address] [place], [place] [id number] 06/04/2025 Chan [place] Hives of unknown katherine gin L50.9 ; Elevated C-reactive protein (CRP) R79.82 ; Vitamin D deficiency E55.9 ; Other fatigue R53.83 and Rheumatoid factor positive R76.8 [facility] [address] [place], [place] [id number] 08/08/2025 Odette Crowdy Impaired fasting glucose R73.01 ; Vitamin D deficiency E55.9 and Rheumatoid factor positive R76.89 [facility] [address] [facility] [address] [place], [place] [id number] 12/27/2024 Odette Crowdy Muscle spasms of nec k M62.838 ; Neck pain M54.2 and Paresthesia of left arm R20.2 [facility] [address] [facility] [address] [place], [place] [id number] 05/06/2025 Ana Rosa [place] Acute allergic reaction, initial encounter T78.40XA [facility] [address] [place], [place] [id number] 05/22/2025 Chan [place] [facility] [address] [place] [id number] 06/06/2025 Chanchris Montelongo Vitamin D deficiency E55.9 [facility] [address] [place] [id number] 08/13/2025 Odette Jason Assessments Encounter Date Diagnosis (ICD Code) Assessment Notes Treatment Notes Treatment Clinical Notes Section Notes 06/04/2025 Elevated C-reactive protein (CRP) (ICD-10 - R79.82) 06/04/2025 Hives of unknown origin (ICD-10 - L50.9) Resolved 12/18/2024 Cervical radiculopathy (ICD-10 - M54.12) 12/18/2024 Neck pain (ICD-10 - M54.2) Has had neck pain for quite some time. Has tried medication and PT at [facility] with no improvment. Needs an MRI. 12/27/2024 Muscle spasms of neck (ICD-10 - M62.838) 12/27/2024 Neck pain (ICD-10 - M54.2) 05/05/2025 Acute allergic reaction, initial encounter (ICD-10 [...] the ER. pt notified to stop OBCP 05/06/2025 Acute allergic reaction, initial encounter (ICD-10 - T78.40XA) 05/06/2025 Allergic reaction (ICD-10 - T78.40XA) To change prednisone to DEXA 4mg tid; will RTC for repeat dexa shot tomorrow if awakens with worsening edema/rash and whelps 05/09/2025 Hives (ICD-10 - L50.9) Plan a 21 day treatement with dexamethasone. 7 days of 4 mg BID, followed by 7 days of 4 mg daily then 7 days of 2 mg daily. Continue antihistamines 05/09/2025 CRP elevated (ICD-10 - R79.82) 06/06/2025 Vitamin D deficiency (ICD-10 - E55.9) 08/08/2025 Vitamin D deficiency (ICD-10 - E55.9) 08/08/2025 Impaired fasting glucose (ICD-10 - R73.01) 08/08/2025 Rheumatoid factor positive (ICD-10 - R76.89) 05/09/2025 Elevated rheumatoid factor (ICD-10 - R76.8) 12/27/2024 Paresthesia of left arm (ICD-10 - R20.2) 06/04/2025 Vitamin D deficiency (ICD-10 - E55.9) 06/04/2025 Other fatigue (ICD-10 - R53.83) 06/04/2025 Rheumatoid factor positive (ICD-10 - R76.8) Plan Of Treatment Pending Test Test Name Order Date P-Thyroid Peroxidase Antibody 05/05/2025 Insurance Providers Payer Name Payer Address Payer Phone Subscriber Number Group Number Insured Name Patient Relationship to Insured Coverage Start Date Coverage End Date [facility] [address] [place] [address] [phone] [id number] [address] Roa Self - patient is the insured Medications Administered Medication Instructions Date of Administration Dosage Notes Dexamethasone 05/05/2025 1 mL Dexamethasone 05/06/2025 1 mL Medical (General) History Medical History History ICD Code Interstitial Cystitis Polycystic Ovaries Hyperprolactinemia, S/P Pituitary MRI 20 15 Surgical History Surgery Date(Month/Year) Tonsillectomy Adenoidectomy Bilateral Ear Tubes x 2 Sinus Surgery Hospitalization History Reason Date(Month/Year) Fall Off [facility] ER 04/20/2011
--- OUTSIDE RECORDS SUMMARY | 2025-10-15 11:31 | XMS_ITS | Data Portability ---
Author Organization SUZANNE DON Bolaños [facility] Address [address] [facility] [address] [place] [address] Care Team Providers Care Associate Dean Name Role Phone KANDY PLASCENCIA Primary Care Provider Assessment Encounter Date Assessment Date Assessment LastModified by Organization Details LastModified Time 12/08/2022 12/08/2022 Medical management of hematuria with CT hematuria protocol and cystoscopy. Patient voices understanding. Patient wishes to proceed cystoscopy and CT scan. Medical management of chronic cystitis with hydrodilation of bladder. [email or web address] Not available 12/08/2022 16:22:12 01/12/2023 01/12/2023 DATE OF PROCEDURE: 01/12/2023 PROCEDURE PERFORMED: Cystourethroscop y, Hydrodilation of bladder. SURGEON: Kelsie Chen M.D. ANESTHESIA: MAC BLOOD LOSS: None PREOPERATIVE INDICATIONS: Hematuria, chronic cystitis POSTOPERATIVE INDICATIONS: Hematuria, chronic cystitis DESCRIPTION OF PROCEDURE: Patient was correctly identified in preoperative holding area. Informed consent was obtained. Risks and benefits were reviewed with patient. Patient was taken to procedure room and positioned supine position. Anesthesia induced. Repositioned to lithotomy position. All pressure points padded. Proper timeout procedure completed. Genitourinary area prepped and draped in the normal sterile fashion. Cystoscope advanced through the urethra. Bladder mucosa without evidence of erythema, papillary bladder mass, foreign body. Ureteral orifices in normal anatomic position. Hydrodilation performed x2 at approximately 80 cm water pressure with bladder capacity 750-825 mL. Patient's bladder was drained. Lidocaine gel was instilled for local analgesia. Patient tolerated procedure well. DISPOSITION: Patient was taken to the recovery in stable condition. Discharged home with instructions for outpatient follow-up. [email or web address] Not available 01/23/2023 10:15:05 01/26/2023 01/26/2023 Monitor lower urinary symptoms. Avoid bladder irritants. [email or web address] Not available 01/29/2023 16:31:56 Plan of Treatment Reminders Order Date Submit Date Provider Last Modified By Organization Details Last Modified Time Details Appointments None recorded. Lab urinalysis panel, auto 2022 023 [email or web address] 14 [facility], [address] [place] [address] , [place], [address], 16:31:57 urinalysis panel, auto 2022 023 [email or web address] 14 [facility], [address] [place] [address] , [address], [place], [address], 07:04:25 Referral None recorded. Procedures None recorded. Surgeries cystoscopy, hydrodilati on of bladder (SURG) 2022 023 [email or web address] [facility], [address] [facility], [facility] [address], [place], [address], 3 12:51:[address], abdomen + pelvis, w/wo contrast - CT ABD/PEL W/WO CONTRAST #[id number], effective 12/26/2022 - 01/25/2023, for procedure code [id number] ALLAN SCOTT 2022 023 [facility], [address], [facility] [address], [place], [address], 3 11:22:29 Medication Orders None recorded. Patient TargetsNo targets recorded. Patient Instructions Encounter Date Encounter Id Patient Instructions Last Modified By Organization Details Last Modified Time 01/26/2023 [id number] learning about healthy weight [email or web address] Not available 01/29/2023 16:31:57 Reason for Referral None Reported. Results Created Date Observation Date Name Description Value Unit Range Abnormal Flag Note LastModifiedBy Organization Detail LastModifiedTime 12/08/1912/08/2022 urina lysis panel , auto Unknown Analyte Clean Catch Not Available [facility] With [address], [place], [address], 12/08/2022 16:01:46 12/08/1912/08/2022 urina lysis panel , auto Unknown Analyte Yellow Not Available [facility] With [address], [place], [address], 12/08/2022 16:01:46 12/08/1912/08/2022 urina lysis panel , auto Unknown Analyte Clear Not Available [facility] With [address], [place], [address], 12/08/2022 16:01:46 12/08/19 23 12/08/2022 urina lysis panel , auto Unknown Analyte 1.015 Not Available [facility] With [address], [place], [address], 12/08/2022 16:01:46 12/08/19 23 12/08/2022 urina lysis panel , auto Unknown Analyte 1.003- 1.035 Not Available [facility] With [address], [place], [address], 12/08/2022 16:01:46 12/08/19 23 12/08/2022 urina lysis panel , auto Unknown Analyte 7.0 Not Available [facility] With [address], [place], [address], 12/08/2022 16:01:46 12/08/19 23 12/08/2022 urina lysis panel , auto Unknown Analyte 5.0-8. 0 Not Available [facility] With [address]res[address] Sánchez, [place], [address], 12/08/2022 16:01:46 12/08/19 23 12/08/2022 urina lysis panel , auto Unknown Analyte Negati ve Not Available [facility] With [address]resita [address]ánchez, [place], [address], 12/08/2022 16:01:46 12/08/19 23 12/08/2022 urina lysis panel , auto Unknown Analyte Negati ve Not Available [facility] With [address]resita Sánchez, [place], [address], 12/08/2022 16:01:46 12/08/19 23 12/08/2022 urina lysis panel , auto Unknown Analyte Negati ve Not Available [facility] With [address] Teresita Sánchez, [place], [address], 12/08/2022 16:01:46 12/08/19 23 12/08/2022 urina lysis panel , auto Unknown Analyte Negati ve Not Available [facility] With [address], [place], [address], 12/08/2022 16:01:46 12/08/19 23 12/08/2022 urina lysis panel , auto Unknown Analyte Negati ve Not Available [facility] With [address], [place], [address], 12/08/2022 16:01:46 12/08/19 23 12/08/2022 urina lysis panel , auto Unknown Analyte Negati ve Not Available [facility] With [address], [place], [address], 12/08/2022 16:01:46 12/08/19 23 12/08/2022 urina lysis panel , auto Unknown Analyte Normal Not Available [facility] With [address]resita Sánchez, [place], [address], 12/08/2022 16:01:46 12/08/19 23 12/08/2022 urina lysis panel , auto Unknown Analyte Normal Not Available [facility] With [address]resita Sánchez, [place], [address], 12/08/2022 16:01:46 12/08/19 23 12/08/2022 urina lysis panel , auto Unknown Analyte 15 mg/dl (Sm) Not Available [facility] With [address], [place], [address], 12/08/2022 16:01:46 12/08/19 23 12/08/2022 urina lysis panel , auto Unknown Analyte Negati ve Not Available [facility] With [address], [place], [address], 12/08/2022 16:01:46 12/08/19 23 12/08/2022 urina lysis panel , auto Unknown Analyte Normal Not Available [facility] With [address], [place], [address], 12/08/2022 16:01:46 12/08/19 23 12/08/2022 urina lysis panel , auto Unknown Analyte Normal 1 mg/dl Not Available [facility] With [address], [place], [address], 12/08/2022 16:01:46 12/08/19 23 12/08/2022 urina lysis panel , auto Unknown Analyte Negati ve Not Available [facility] With [address], [place], [address], 12/08/2022 16:01:46 12/08/19 23 12/08/2022 urina lysis panel , auto Unknown Analyte Negati ve Not Available [facility] With [address]resita Sánchez, [place], [address], 12/08/2022 16:01:46 12/08/19 23 12/08/2022 urina lysis panel , auto Unknown Analyte Negati ve Not Available [facility] With [address]resita Sánchez, [place], [address], 12/08/2022 16:01:46 12/08/19 23 12/08/2022 urina lysis panel , auto Unknown Analyte Negati ve Not Available [facility] With [address]resita Sánchez, [place], [address], 12/08/2022 16:01:46 01/13/20 23 01/12/2023 urina lysis panel , auto Unknown Analyte Clean Catch Not Available [facility] [address] [place] [address], [address], 01/12/2023 10:51:02 01/13/2001/12/2023 urina lysis panel , auto Unknown Analyte Yellow Not Available [facility] [address] [place] [address], [address], 01/12/2023 10:51:02 01/13/2001/12/2023 urina lysis panel , auto Unknown Analyte Clear Not Available [facility] [address] [place] [address], [address], 01/12/2023 10:51:02 01/13/2001/12/2023 urina lysis panel , auto Unknown Analyte 1.[address] [facility] [address] [place] [address], [address], 01/12/2023 10:51:02 01/13/20 23 01/12/2023 urina lysis panel , auto Unknown Analyte 1.003- 1.035 Not Available [facility] [address] [place] [address], [place], [address], 01/12/2023 10:51:02 01/13/20 23 01/12/2023 urina lysis panel , auto Unknown Analyte 5.[address] [facility] [address] [place] [address], [place], [address], 01/12/2023 10:51:02 01/13/20 23 01/12/2023 urina lysis panel , auto Unknown Analyte 5.0-8. 0 Not Available [facility] [address] [place] [address], [place], [address], 01/12/2023 10:51:02 01/13/20 23 01/12/2023 urina lysis panel , auto Unknown Analyte 25 Betzaida/ul Trace Not Available [facility] [address] [place] [address], [address], 01/12/2023 10:51:02 01/13/20 23 01/12/2023 urina lysis panel , auto Unknown Analyte Negati ve Not Available [facility] [address] [place] [address], [address], 01/12/2023 10:51:02 01/13/20 23 01/12/2023 urina lysis panel , auto Unknown Analyte Negati ve Not Available [facility] [address] [place] [address], [address], 01/12/2023 10:51:02 01/13/20 23 01/12/2023 urina lysis panel , auto Unknown Analyte Negati ve Not Available [facility] [address] [place] [address], [address], 01/12/2023 10:51:02 01/13/20 23 01/12/2023 urina lysis panel , auto Unknown Analyte Trace Not Available [facility] [address] [place] [address], [place], [address], 01/12/2023 10:51:02 01/13/20 23 01/12/2023 urina lysis panel , auto Unknown Analyte Negati ve Not Available [facility] [address] [place] [address], [address], 01/12/2023 10:51:02 01/13/20 23 01/12/2023 urina lysis panel , auto Unknown Analyte Normal Not Available [facility] [address] [place] [address], [address], 01/12/2023 10:51:02 01/13/20 23 01/12/2023 urina lysis panel , auto Unknown Analyte Normal Not Available [facility] [address] [place] [address], [address], 01/12/2023 10:51:02 01/13/20 23 01/12/2023 urina lysis panel , auto Unknown Analyte 15 mg/dl (Sm) Not Available [facility] [address] [place] [address], [address], 01/12/2023 10:51:02 01/13/20 23 01/12/2023 urina lysis panel , auto Unknown Analyte Negati ve Not Available [facility] [address] [place] [address], [address], 01/12/2023 10:51:02 01/13/20 23 01/12/2023 urina lysis panel , auto Unknown Analyte Normal Not Available [facility] [address] [place] [address], [address], 01/12/2023 10:51:02 01/13/20 23 01/12/2023 urina lysis panel , auto Unknown Analyte Normal 1 mg/dl Not Available [facility] [address] [address], [place], [address], 01/12/2023 10:51:02 01/13/20 23 01/12/2023 urina lysis panel , auto Unknown Analyte 1 mg/dl (+) Not Available [facility] [address] [place] [address], [address], 01/12/2023 10:51:02 01/13/20 23 01/12/2023 urina lysis panel , auto Unknown Analyte Negati ve Not Available [facility] [address] [place] [address], [place], [address], 01/12/2023 10:51:02 01/13/20 23 01/12/2023 urina lysis panel , auto Unknown Analyte 50 David/ul Not Available [facility] [address] [place] [address], [place], [address], 01/12/2023 10:51:02 01/13/20 23 01/12/2023 urina lysis panel , auto Unknown Analyte Negati ve Not Available [facility] [address] [place] [address], [address], 01/12/2023 10:51:02 01/27/20 23 01/26/2023 urina lysis panel , auto Unknown Analyte Clean Catch Not Available [facility] [address], [place], [address], 01/26/2023 16:45:48 01/27/20 23 01/26/2023 urina lysis panel , auto Unknown Analyte Yellow Not Available [facility] [address], [place], [address], 01/26/2023 16:45:48 01/27/20 23 01/26/2023 urina lysis panel , auto Unknown Analyte Clear Not Available [facility] With [address] Sánchez, [place], [address], 01/26/2023 16:45:48 01/27/20 23 01/26/2023 urina lysis panel , auto Unknown Analyte 1.015 Not Available [facility] With [address]resita Sánchez, [place], [address], 01/26/2023 16:45:48 01/27/20 23 01/26/2023 urina lysis panel , auto Unknown Analyte 1.003- 1.035 Not Available [facility] With [address]resita Sánchez, [place], [address], 01/26/2023 16:45:48 01/27/20 23 01/26/2023 urina lysis panel , auto Unknown Analyte 7.0 Not Available [facility] With [address]resita Sánchez, [place], [address], 01/26/2023 16:45:48 01/27/20 23 01/26/2023 urina lysis panel , auto Unknown Analyte 5.0-8. 0 Not Available [facility] With [address]resita Sánchez, [place], [address], 01/26/2023 16:45:48 01/27/20 23 01/26/2023 urina lysis panel , auto Unknown Analyte 25 Betzaida/ul Trace Not Available [facility] With [address], [place], [address], 01/26/2023 16:45:48 01/27/20 23 01/26/2023 urina lysis panel , auto Unknown Analyte Negati ve Not Available [facility] With [address], [place], [address], 01/26/2023 16:45:48 01/27/20 23 01/26/2023 urina lysis panel , auto Unknown Analyte Negati ve Not Available [facility] With [address]res[address] Sánchez, [place], [address], 01/26/2023 16:45:48 01/27/20 23 01/26/2023 urina lysis panel , auto Unknown Analyte Negati ve Not Available [facility] With [address] Sánchez, [place], [address], 01/26/2023 16:45:48 01/27/20 23 01/26/2023 urina lysis panel , auto Unknown Analyte Negati ve Not Available [facility] With [address]ita Sánchez, [place], [address], 01/26/2023 16:45:48 01/27/20 23 01/26/2023 urina lysis panel , auto Unknown Analyte Negati ve Not Available [facility] With [address], [place], [address], 01/26/2023 16:45:48 01/27/20 23 01/26/2023 urina lysis panel , auto Unknown Analyte Normal Not Available [facility] With [address], [place], [address], 01/26/2023 16:45:48 01/27/20 23 01/26/2023 urina lysis panel , auto Unknown Analyte Normal Not Available [facility] With [address], [place], [address], 01/26/2023 16:45:48 01/27/20 23 01/26/2023 urina lysis panel , auto Unknown Analyte 15 mg/dl (Sm) Not Available [facility] With [address], [place], [address], 01/26/2023 16:45:48 01/27/20 23 01/26/2023 urina lysis panel , auto Unknown Analyte Negati ve Not Available [facility] With [address]res[address] Sánchez, [place], [address], 01/26/2023 16:45:48 01/27/20 23 01/26/2023 urina lysis panel , auto Unknown Analyte Normal Not Available [facility] With [address]res[address] Sánchez, [place], [address], 01/26/2023 16:45:48 01/27/20 23 01/26/2023 urina lysis panel , auto Unknown Analyte Normal 1 mg/dl Not Available [facility] With [address]resita Sánchez, [place], [address], 01/26/2023 16:45:48 01/27/20 23 01/26/2023 urina lysis panel , auto Unknown Analyte Negati ve Not Available [facility] With [address]resita Sánchez, [place], [address], 01/26/2023 16:45:48 01/27/20 23 01/26/2023 urina lysis panel , auto Unknown Analyte Negati ve Not Available [facility] With [address], [place], [address], 01/26/2023 16:45:48 01/27/20 23 01/26/2023 urina lysis panel , auto Unknown Analyte 50 David/ul Not Available [facility] With [address]ita Sánchez, [place], [address], 01/26/2023 16:45:48 01/27/20 23 01/26/2023 urina lysis panel , auto Unknown Analyte Negati ve Not Available [facility] [address], [place], [address], 01/26/2023 16:45:48 01/05/20 23 01/04/2023 CT, abdom en + pelvi s, w/wo contr ast No observ ation record ed. [email or web address] [facility], [place], [address], 02/09/2023 09:49:18 Result Notes None recorded. Procedures Surgical History Date Name Laterality Status Provider Name and Address Organization Details Recorded Time Cholecystectomy completed Celine Sy [facility] 12/08/2022 16:00:29 Tonsillectomy completed Celine Sy [facility] 12/08/2022 16:00:36 [facility]/08/2022 16:00:54 Imaging Results None recorded. Procedure Notes None recorded. Medical Equipment None Reported. Allergies No known drug allergies Medications Name Sig Start Date Stop Date Status Note LastModified by Organization Details LastModified Time spironolactone active Not Available No t Available Not Available Vitals Date Recorded Body height Body mass index (BMI) Body weight Provider Name and Address Organization Details Last Updated DateTime 12/08/2022 165.1 cm 36.4 kg/m2 07475.73 g Satishhenryberto Yossi [facility] 12/08/2022 15:58:56 Date Recorded Body height Body mass index (BMI) Body weight Provider Name and Address Organization Details Last Updated DateTime 01/26/2023 165.1 cm 36.4 kg/m2 75641.73 g Satishhenryberto Yossi [facility] 01/26/2023 16:44:24 Social History Question Answer Notes LastModified by Organizat ion Details LastModified Time Tobacco Smoking Status Never Smoker Celine ceja [facility] 12/08/2022 16:00:15 What Was The Date Of Your Most Recent Tobacco Screening? 01/26/2023 Information not available 01/26/2023 What Is Your Relationship Status? [email or web address] Information not available 12/08/2022 Sex: Female Functional Status Question Answer Note LastModified by Organization D etails LastModified Time What is your level of alcohol consumption? None Information not available 12/08/2022 Mental Status None recorded. Family History Relationship Description Onset Age of this Age Resolved Age Notes LastModified by Organization Details LastModified Time Father No current problems or disability [email or web address] Not available 12/08 15:59:59 Mother No current problems or disability [email or web address] Not available 12/08 15:59:59 Medical History No medical history recorded. Gynecological HistoryNo gynecological history recorded. Obstetrics History GPAL:G 0 P 0 0 0 0 Past Encounters Encounter ID Performer Location Encounter Start Date Encounter Closed Date Diagnosis/Indication Diagnosis SNOMED-CT Code Diagnosis ICD10 Code Diagnosis IMO Codes Diagnosis Note [id number] KELSIE CHEN MD [facility] [address] [place] [address],[address] [place] [address] 12/08/2022 15:48:25 12/23/2022 04:25:05 Nocturia 215252829 R35.1 Dysuria 54220276 R30.0 Urge incon tinence of urine 66925117 N39.41 Blood in urine 25373396 R31.9 Pain in pelvis 67903422 R10.2 Chronic cystitis 2560731 2 N30.20 [id number] KELSIE CHEN MD SURGERY SCHEDULE [address] [place] [address] 01/12/2023 07:09:45 01/12/2023 07:10:12 [id number] KELSIE CHEN MD [facility] [address] [address] 01/26/2023 16:11:58 01/30/2023 04:13:48 Chronic cystitis 86346920 N30.20 Overactive urinary bladder 558020731 N32.81 Health Concerns Section Related Observation LastModified by Organization Detai ls LastModified Time None Recorded Concern Status LastModified by Organization Details LastModified Time None Recorded Advance Directives Directive None Recorded Payers Insurance Date Sequence Insurance Name Policy Number Policy Brown Covered Member ID Brown Member ID Guarantor Name 11/29/2022 1 [employer] [facility] (MEDICAID HMO) Allan Darden [id number] Allan Roa 01/30/2023 1 ESTHER (PPO) Dwight Roa [id number] Allan A Scott Notes Date Note Type Note Provider Name and Address Organization Details Recorded Time 12/08/2022 text/html 27-year-old female in the office for my initial evaluation and for discussion of hematuria and chronic cystitis. She report pain in pelvic area, painful with intercourse. In the last 4 months she reports had had recurrent urinary tract infection symptoms but cultures without growth. She previously reports having recent gross hematuria, urge incontinence, nocturia and dysuria. She currently has strong urgency. No hesitancy. Daytime frequency every 2-3 hours. Nocturia twice nightly. KELSIE CHEN MD [address] [place] [address], [phone], [facility] 12/22/2022 07:04:43 01/26/2023 text/html 27-year-old female in the office for follow-up evaluation chronic cystitis and hematuria. She had cystoscopy with [place] dilation with adequate bladder capacity. She is doing well with stable lower urinary symptoms. No current hematuria or dysuria. KELSIE CHEN MD [address] [place] [address] [place], [address], [facility] 01/29/2023 16:32:10 OBGyn Episode No OBEpisode recorded.
--- OUTSIDE RECORDS SUMMARY | 2025-10-15 11:31 | XMS_ITS | Clinical Summary ---
Author Organization [facility] Address [address] [place] [address] Care Team Providers Care Door Glass Installer Name Role Phone Debbie Aponte PA-C Primary Care Provider Allergies No known active allergies Medications norethindrone-et hinyl estradiol FE (11/04) 1-20 MG-MCG per tablet Take 1 tablet by mouth Daily. 84 tablet 3 02/05/2025 6 Active Active Problems Problem Noted Date Diagnosed Date Obesity (BMI 30-39.9) 10/30/2024 Assessment & Plan (10/30/2024 9:55 AM EST): Patient's (Body mass index is 36.11 kg/m .) indicates that they are obese (BMI >30) with health conditions that include impaired fasting glucose . Weight is worsening. BMI is above average; BMI management plan is completed. We discussed low calorie, low carb based diet program, portion control, increasing exercise, and pharmacologic options including Tirzepatide . Patient should continue implementing healthy eating habits and increase daily activity. Mild dysplasia of cervix 12/08/2021 Overview (12/08/2021): 12/26/2019 colposcopy with LGSIL. ECC with fragment of HPV. Follow-up Pap smear 08/26/2020 was negative. Cervical high risk human pap illomavirus (HPV) DNA test positive 12/08/2021 Overview (12/08/2021): Pap smear 11/01/2018 ASCUS with NON 16/18 HPV positive. Pap smear 2021; ASCUS with POSITIVE 18/45 HPV. Atypical squamous cell dacosta es of undetermined significance (ASCUS) on cervical cytology with positive high risk human papilloma virus (HPV) 08/12/2021 Overview (12/08/2021): Pap 07/28/2021 ASCUS. HPV 16 -. HPV 18/45+. Colposcopy 12/08/2021 with biopsy of small area of white epithelium at 7 and ECC performed. Pap smear scheduled for 6 months. Immunizations Immunization Administration Dates Next Due DTaP, Unspecified 09/23/1997 MMR 09/23/1997 OPV 09/23/1997 Td (TDVAX) 05/24/2005 Family History Medical History Relation Name Comments No Known Problems Other FMILY HX Relation Name Status Comments Other FMILY HX Social History Tobacco Use Types Packs/Day Years Used Date Smoking Tobacco: Never Smokeless Tobacco: Never Tobacco Cessation:Counseling Given: Not Answered Alcohol Use Standard Drinks/Week Comments Never 0 (1 standard drink = 0.6 oz pur e alcohol) AUDIT-C Answer Date Recorded Q1: How often do you have a drink containing alc ohol? 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 on file Not on file Not on file Last Filed Vital Signs Vital Sign Reading Time Taken Comments Blood Pressure 102/74 12/11/2024 8:53 AM EST Pulse 88 10/30/2024 9:00 AM EST Temperature 36.2 C (97.1 F) 10/30/2024 9:00 AM EST Respiratory Rate 18 12/11/2024 8:53 AM EST Oxygen Saturation 97% 10/30/2024 9:00 AM EST Inhaled Oxygen Concentration - - Weight 101 kg (222 lb) 12/11/2024 8:53 AM EST Height 165.1 cm (5' 5 ) 12/11/2024 8:53 AM EST Body Mass Index 36.94 12/11/2024 8:53 AM EST Plan of Treatment Health Maintenance Due Date Last Done Comments TDAP/TD VACCINES (2 - Tdap) 05/25/2005 05/24/2005 ANNUAL PHYSICAL 07/27/2020 HEPATITIS C SCREENING 07/27/2020 INFLUENZA VACCINE 05/16/2025 Annual Gynecologic Pelvic and Breast Exam 12/12/2025 12/11/2024 PAP SMEAR 12/11/2027 12/11/2024, 01/14, 06/15/2022, Additional history exists Pneumococcal Vaccine 0-49 Aged Out No longer eligible based on patient's age to complete this topic Procedures Procedure Name Priority Date/Time Associated Diagnosis Comments LIQUID-BASED PAP SMEAR WITH HPV GENOTYPING REGARDLESS OF INTERPRETATION, [facility] ([facility]) Routine 12/11/2024 9:36 AM EST Encounter for annual routine gynecological examination from Last 3 Months or Most Recently Relevant to Health Maintenance Results * LIQUID-BASED PAP SMEAR WITH HPV GENOTYPING REGARDLESS OF INTERPRETATION ([facility]AD) (12/11/2024 9:36 AM EST) Reference Lab Report [facility] [address] [place] [address] or [phone] Louis Pruett M.D., Textile Machinery Sales Representative PATIENT NAME LABORATORY NO. [id number] ALLAN CHAVEZAp [id number] AGE SEX SSN CLIENT REF # [facility] 31 1995 F [id number] Nico MONTERO REQUESTING Kira [place] [address] MACKENZIE ZAMBRANO DATE COLLECTED DATE RECEIVED DATE REPORTED 12/11/2024 12/11/2024 12/13/2024 ThinPrep Pap with Cytyc Imaging DIAGNOSIS: Negative for intraepithelial lesion or malignancy Multiple factors can influence accuracy of Pap tests; therefore, screening at regular intervals is necessary for early cancer detection. SPECIMEN ADEQUACY: SATISFACTORY FOR EVALUATION Transformation zone is absent or insufficient. SOURCE OF SPECIMEN: CERVICAL/ENDOCERV ICAL SLIDES: 1 CLINICAL HISTORY: Encounter for annual routine gynecological examination Female hirsutism Acne vulgaris HPV HR-HPV POOL: Negative The Aptima HPV assay is an in vitro nucleic acid amplification test for the qualitative detection of E6/E7 viral messenger RNA from 14 high risk types of HPV in cervical specimens. The high risk HPV types detected include: 16, 18, 31, 33, 35, 39, 45, 51, 52, 56, 58, 59, 66, 68 GREEN BUILDING MATERIALS DESIGNER: KIP CASANOVA (ASCP) CPT CODES: 99728, [id number] 12/13/2024 12:28 PM EST [facility] ThinPrep Vial Cervix uteri structure / Unknown Collection / Unknown 12/11/2024 9:36 AM EST 12/11/2024 9:36 AM EST Mackenzie Zambrano APRN PATHOLOGY/CYTOLOGY ORDERABLES Final Result [facility]
[address] [place] [address], from Last 3 Months or Most Recently Relevant to Health Maintenance Insurance Care Teams Door Glass Installer Relationship Specialty Start Date End Date Debbie Aponte, GABINOC [address] [place] [address] PCP - General Family Medicine 11/04/24
--- OUTSIDE RECORDS SUMMARY | 2025-10-15 11:31 | XMS_ITS | Data Portability ---
Author Organization [facility], HOME/SKILLED NURSING/IND Address [address] [place] [address] Assessment No assessment recorded. Plan of Treatment Reminders Order Date Submit Date Provider Last Modified By Organization Details Last Modified Time Details Appointments None record ed. Lab None record ed. Referral None record ed. Procedures None record ed. Surgeries None record ed. Imaging None record ed. Medication Orders TIRZEP ATIDE/ Methyl cobala min 025 07/09/20 25 [email or web address] Not available 5 14:03:25 TIRZEP ATIDE/ Methyl cobala min 025 07/09/20 25 [email or web address] [facility], [address] [place], [place] [address], [phone], 5 08:43:11 TIRZEP ATIDE/ Methyl cobala min 025 06/11/20 25 [email or web address] Not available 5 10:40:37 TIRZEP ATIDE/ Methyl cobala min 025 06/11/20 25 [email or web address] [facility], [address] [place], [place] [address], [phone], 5 08:55:20 TIRZEP ATIDE/ Methyl cobala min 025 01/09/20 25 [email or web address] [facility], [address] [place], [place] [address], [phone], 5 08:44:54 TIRZEP ATIDE/ Methyl cobala min 025 12/11/19 25 [email or web address] Not available 5 15:16:05 TIRZEP ATIDE/ Methyl cobala min 025 12/11/19 25 [email or web address] [facility], [address] [address] [place], [phone], 5 10:19:24 Patient TargetsNo targets recorded. Patient InstructionsNo instructions recorded. Reason for Referral None Reported. Procedures Surgical History Date Name Laterality Status Provider Name and Address Organization Details Recorded Time 12/11/19 Date of Last Pap Smear completed [facility] 01/08/2025 08:33:44 Tonsillectomy completed [facility] 01/31/2024 10:50:42 Gallbladder Surgery completed [facility] 01/31/2024 10:50:42 Adenoidectomy completed [facility] 01/31/2024 10:50:42 Imaging Results None recorded. Procedure Notes None recorded. Medical Equipment None Reported. Medications Name Sig Start Date Stop Date Status Note LastModified by Organization Details LastModified Time TIRZEPATI DE/Methyl cobalamin 25u weekly 2024 active Not Available Not Available Not Avai lable TIRZEPATI DE - LCP 70u subq LLQ by wallace [email or web address] 2023 active Not Available Not Available Not Avai lable TIRZEPATI DE/Methyl cobalamin 70 u weekly 2023 active Not Available Not Available Not Avai lable TIRZEPATI DE/Methyl cobalamin 60 u weekly 2024 active Not Available Not Available Not Avai lable TIRZEPATI DE/Methyl cobalamin 35u weekly 2024 active Not Available Not Available Not Avai lable TIRZEPATI DE COMPOUNDE D 10u subq RLQ by [email or web address] [email or web address] 2023 active Not Available Not Available Not Avai lable TIRZEPATI DE - LCP 70u subq RLQ by [place] [id number] 2023 active Not Available Not Available Not Avai lable TIRZEPATI DE/Methyl cobalamin 60 u weekly 2024 active Not Available Not Available Not Avai lable TIRZEPATI DE - LCP 70 u weekly 03/05 completed Not Available Not Available Not Available TIRZEPATI DE COMPOUNDE D Inject 25 units of Tirzepat montserrat weekly for 2 weeks before follow up with Fernanda 2023 active Not Available Not Available Not Avai lable TIRZEPATI DE COMPOUNDE D 20 units tirzepat montserrat subq rlq [facility] 2023 active Not Available Not Available Not Avai lable TIRZEPATI DE/Methyl cobalamin 70u subq LLQ [place] [id number] 2024 active Not Available Not Available Not Avai lable TIRZEPATI DE COMPOUNDE D 25u subq RLQ by wallace [email or web address] 03/05 completed Not Available Not Available Not Available SEMAGLUTI DE COMPOUNDE D 10u subq LLQ [place] [id number] 10/02 completed Not Available Not Available Not Available TIRZEPATI DE/Methyl cobalamin 70u weekly 2024 active Not Available Not Available Not Avai lable TIRZEPATI DE - LCP 70u subq RLQ by wallace [email or web address] 2023 active Not Available Not Available Not Avai lable TIRZEPATI DE COMPOUNDE D 10u subq RLQ by [place] [id number] 02/06 completed accident ally sent to pharmacy , dispense d in office will reorder Not Available Not Available Not Available TIRZEPATI DE/Methyl cobalamin 60 u weekly 2024 active Not Available Not Available Not Avai lable TIRZEPATI DE/Methyl cobalamin 60 u weekly 2024 active Not Available Not Available Not Avai lable TIRZEPATI DE/Methyl cobalamin 25u weekly 2024 active Not Available Not Available Not Avai lable TIRZEPATI DE/Methyl cobalamin 70u weekly 2024 active Not Available Not Available Not Avai lable TIRZEPATI DE COMPOUNDE D 20u subq RLQ by [email or web address] 2023 active Not Available Not Available Not Avai lable azithromy cortes 250 mg tablet 06/11 completed Not Available Not Available Not Available fluconazo le 150 mg tablet 06/11 completed Not Available Not Available Not Available phenazopy ridine 200 mg tablet 08/27 completed Not Available Not Available Not Available hydrocodo ne 7.5 mg-acetam inophen 325 mg tablet TAKE 1 TABLET BY MOUTH EVERY 4 TO 6 HOURS NEEDED active Not Available Not Available No t Available oseltamiv ir 75 mg capsule 08/27 completed Not Available Not Available Not Available dexametha sone 4 mg tablet TAKE 1 TABLET BY MOUTH 3 TIMES A DAY 06/11 completed Not Available Not Available Not Available levofloxa cortes 750 mg tablet 08/27 completed Not Available Not Available Not Available methylpre dnisolone 4 mg tablets in a dose pack 06/11 completed Not Available Not Available Not Available ondansetr on 4 mg disintegr ating tablet Place 1 tablet every 6-8 hours by translin gual route as needed for 3 days. 08/27 completed Not Available Not Available Not Available nitrofura ntoin monohydra te/macroc rystals 100 mg capsule 06/11 completed Not Available Not Available Not Available cholecalc iferol (vitamin D3) 1,250 mcg (50,000 unit) capsule TAKE 1 CAPSULE BY MOUTH ONCE WEEKLY active Not Available Not Available No t Available tirzepati de 2.5 mg/0.5 mL subcutane ous pen injector Inject 0.1 mL by subcutan eous route. 03/05 completed 10 units Not Available Not Available Not Available Vitals Date Recorded Body height Heart rate Body temperature Body mass index (BMI) Body weight Oxygen saturation Systolic And Diastolic Provider Name and Address Organization Details Last Updated DateTime 5 165.1 cm 72 /min 97 [degF] 36.1 kg/m2 07441.5 4 g 97 % 130/88 mm[Hg] Antonietta garza [place] [facility] 5 10:07:10 Date Recorded Body height Heart rate Body temperature Body mass index (BMI) Body weight Oxygen saturation Systolic And Diastolic Provider Name and Address Organization Details Last Updated DateTime 165.1 cm 87 /min 98.2 [degF] 35.4 kg/m2 03578.1 7 g 98 % 130/98 mm[Hg] nAtonietta garza [facility] 08:33:28 Date Recorded Body height Body mass index (BMI) Body weight Provider Name and Address Organization Details Last Updated DateTime 05/21/2025 165.1 cm 34.4 kg/m2 95093.62 g FERNANDA HURT APRN [address] [place], [address] 05/21/2025 13:09:01 Date Recorded Body height Body mass index (BMI) Body weight Provider Name and Address Organization Details Last Updated DateTime 06/11/2025 165.1 cm 35 kg/m2 49703.1 g Kristy Marquez [facility] 06/11/2025 08:29:43 Date Recorded Body height Body mass index (BMI) Body weight Provider Name and Address Organization Details Last Updated DateTime 07/09/2025 165.1 cm 34.3 kg/m2 22760.03 g Dieudonne Hurt MD [address] [place], [address] 07/09/2025 08:41:02 Social History Question Answer Notes LastModified by Organizat ion Details LastModified Time Tobacco Smoking Status Never Smoker [facility] 01/31/2024 10:50:42 Do You Have An Advance Directive? No [facility] Information not available 01/31/2024 Do You Wear A Helmet When Biking? No Information not available 01/31/2024 Are You Blind Or Do You Have Difficulty Seeing? No [email or web address] Information not available 01/31/2024 What Is Your Level Of Caffeine Consumption? Moderate Information not available 01/31/2024 Are You Deaf Or Do You Have Serious Difficulty Hearing? No [facility] Information not available 01/31/2024 Education 2 Year College Informat ion not available 01/31/2024 How Many Times Per Week Do You Exercise? Less Than 1 Time Per Week Information not available 01/31/2024 Family History Of Heart Disease? Yes Information not available 01/31/2024 Have There Been Any Changes To Your Family Or Social Situation? No Information not available 01/31/2024 Are There Any Guns Present In Your Home? 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 No [facility] Information not available 01/31/2024 Do You Have Any Pets? Yes [facility] Information not available 01/31/2024 Do You Use Your Seat Belt Or Car Seat Routinely? Yes [facility] Information not available 01/31/2024 Are You Passively Exposed To Smoke? No Information not available 01/31/2024 Are There Any Smokers In Your House? No [facility] Information not available 01/31/2024 General Stress Level Low [facility] Information not available 01/31/2024 Do You Use Sunscreen Routinely? No [facility] Information not available 01/31/2024 Have You Recently Traveled Abroad? No Information not available 01/31/2024 Are You Currently In School? No Information not available 01/31/2024 Do You Have Any Dietary Restrictions? No Information not available 01/31/2024 Sex: Unknown Functional Status Question Answer Note LastModified by Organizat ion Details LastModified Time Do you use any illicit or recreational drugs? No [facility] Information not available 01/31/2024 Do you or have you ever used any other forms of tobacco or nicotine? No [facility] Information not available 01/31/2024 What is your level of alcohol consumption? None [facility] Information not available 01/31/2024 Are you currently employed? Yes [facility] Information not available 01/31/2024 Have you been exposed to heavy metals? No [facility] Information not available 01/31/2024 Have you been exposed to chemicals or toxins? No [facility] Information not available 01/31/2024 Are you able to care for yourself independently? Yes [facility] Information not available 01/31/2024 Do you or have you ever used e-cigarettes or vape? Never used electronic cigarettes [facility] Information not available 01/31/2024 Mental Status Question Answer Note LastModified by Organization D etails LastModified Time Do you have difficulty concentrating, remembering or making decisions? [place] [id number] Information no t available 01/31/2024 Family History Relationship Description Onset Age of this Age Resolved Age Notes LastModified by Organization Details LastModified Time Mother Disorder of thyroid gland cox Not available 10:50:41 Maternal Aunt Disorder of thyroid gland cox Not available 10:50:41 Maternal Grandmother Disorder of thyroid gland cox Not available 10:50:41 Maternal Grandmother Disease of liver 67 cox Not available 10:50:41 Maternal Grandmother Alzheimer's disease cox Not available 10:50:41 Medical History Condition Response Obesity Y Bladder or Kidney Problems Y Gynecological History Statement/Question Response Abnormal Pap N Flow Moderate Date of LMP 11/30/2024 On BCP's at Conception? N N STIs/STDs N N HPV Vaccine Y Duration of Flow (days) 5 Current Control Method None Age at First Child 20 Frequency of Cycle (Q days) 5 Sexually Active? Y Partner Vasectomy Menses Monthly N Date of Last Pap Smear 12/11/2024 Sexual Problems? N Desired Control Method N/A LMP Approximate N Obstetrics History GPAL:G 0 P 0 0 0 0 Past Encounters Encounter ID Performer Location Encounter Start Date Encounter Closed Date Diagnosis/Indication Diagnosis SNOMED-CT Code Diagnosis ICD10 Code Diagnosis IMO Codes Diagnosis Note [id number] FERNANDA HURT APRN Main Office [address] [place] [address] 01/31/2024 10:36:56 01/31/2024 12:02:48 Obesity 146899126 E66.9 Advised patient that working to achieve a healthy body weight is very important for assisted health and prevention of diseasePat ient has tried samples of wegovy and mounjaro and did well with both but preferred mounjaro. Insurance would not cover medication .Start tirzepatid e 10 units once weekly.Dis cussed medication use and potential side effects including n/v, constipati on, diarrhea and very rarely pancreatit is.Denies history of MEN syndrome.P atient counseled and understand s medication used is a compounded form of GLP-1 sourced from a reputable [facility]. The brand name GLP-1 is not available and not a reasonable option at this time due to cost. Patient understand s the potential risks involved in using compounded medication s. Patient agrees to follow up for close monitoring for response and adjustment s of treatment plan.Goal 170lbGiven goal of 30min of exercise 5x/weekDis cussed calorie restrictio n and given daily calorie goal of 1500 based on current age, weight and activity level.Disc ussed other weight loss interventi ons including weight loss medicine and/or weight loss surgery.At testation: I, Dieudonne Hurt MD, discussed case with Fernanda Hurt APRN. I agree with assessment and plan as outlined above. [id number] FERNANDA HURT APRN Main Office [address] [place] [address] 02/14/2024 10:50:55 02/16/2024 03:59:46 Obesity 135516802 E66.9 Advised patient that working to achieve a healthy body weight is very important for assisted health and prevention of diseaseTak ing tirzepatid e 20 units once weekly. Patient reports she is doing well with current dose and would like to increase the dose.Incre ase tirzepatid e 20 units once weekly.Dis cussed medication use and potential side effects including n/v, constipati on, diarrhea and very rarely pancreatit is.Denies history of MEN syndrome.P atient counseled and understand s medication used is a compounded form of GLP-1 sourced from a reputable [facility] pharmacy. The brand name GLP-1 is not available and not a reasonable option at this time due to cost. Patient understand s the potential risks involved in using compounded medication s. Patient agrees to follow up for close monitoring for response and adjustment s of treatment plan.Goal 170lbGiven goal of 30min of exercise 5x/weekDis cussed calorie restrictio n and given daily calorie goal based on current age, weight and activity level.Disc ussed other weight loss interventi ons including weight loss medicine and/or weight loss surgery.At testation: I, Dieudonne Hurt MD, discussed case with Fernanda Hurt APRN. I agree with assessment and plan as outlined above. [id number] Dieudonne Hurt MD Main Office [address] [facility] [place] [address] 07/03/2024 10:45:30 07/03/2024 11:01:12 Obesity 285137485 E66.9 Advised patient that working to achieve a healthy body weight is very important for terminal operations supervisor health and prevention of diseasePat ient reports doing well. She is feeling some fatigue.In crease tirzepatid e 70 units once weekly.Dis cussed multifacto rial approach to fatigue including addressing sleep, dehydratio n, proper diet, avoiding caffeine after 2pm Discussed medication use and potential side effects including n/v, constipati on, diarrhea and very rarely pancreatit is.Denies history of MEN syndrome.P atient counseled and understand s medication used is a compounded form of GLP-1 sourced from a reputable [facility] pharmacy. The brand name GLP-1 is not available and not a reasonable option at this time due to cost. Patient understand s the potential risks involved in using compounded medication s. Patient agrees to follow up for close monitoring for response and adjustment s of treatment plan.Goal 170lbGiven goal of 30min of exercise 5x/weekDis cussed calorie restrictio n and given daily calorie goal based on current age, weight and activity level.Disc ussed other weight loss interventi ons including weight loss medicine and/or weight loss surgery. [id number] Dieudonne Hurt MD Main Office [address] [place] [address] 09/04/2024 11:06:37 09/04/2024 11:33:58 Obesity 394217967 E66.9 Advised patient that working to achieve a healthy body weight is very important for terminal operations supervisor health and prevention of diseasePat ient reports doing well. She is feeling some fatigue.[facility]ida [facility]il[facility] tirzepatid e 70 units once weekly.Dis cussed multifacto rial approach to fatigue including addressing sleep, dehydratio n, proper diet, avoiding caffeine after 2pmCalorie Goal: 5666-2829 sheldon/dayWil l get vials next weekDiscus sed medication use and potential side effects including n/v, constipati on, diarrhea and very rarely pancreatit is.Denies history of MEN syndrome.P atient counseled and understand s medication used is a compounded form of GLP-1 sourced from a reputable [facility] pharmacy. The brand name GLP-1 is not available and not a reasonable option at this time due to cost. Patient understand s the potential risks involved in using compounded medication s. Patient agrees to follow up for close monitoring for response and adjustment s of treatment plan.Goal 170lbGiven goal of 30min of exercise 5x/weekDis cussed calorie restrictio n and given daily calorie goal based on current age, weight and activity level.Disc ussed other weight loss interventi ons including weight loss medicine and/or weight loss surgery. [id number] FERNANDA HURT APRN Main Office [address] [place] [address] 12/11/2024 10:00:55 12/11/2024 10:35:27 Obesity 439231691 E66.9 Advised patient that working to achieve a healthy body weight is very important for terminal operations supervisor health and prevention of diseasePat ient reports doing well. She is feeling some fatigue.[facility] last few doses. Reports she got off track. Would like to restart medication .Was taking tirzepatid e 70u and doing well. No s/eRestart tirzepatid e 25u weekly.Sheldon orie Goal: [id number] sheldon/dayDis cussed medication use and potential side effects including n/v, constipati on, diarrhea and very rarely pancreatit is.Denies history of MEN syndrome.P atient counseled and understand s medication used is a compounded form of GLP-1 sourced from a reputable [facility] pharmacy. The brand name GLP-1 is not available and not a reasonable option at this time due to cost. Patient understand s the potential risks involved in using compounded medication s. Patient agrees to follow up for close monitoring for response and adjustment s of treatment plan.Goal 170lbGiven goal of 30min of exercise 5x/weekDis cussed calorie restrictio n and given daily calorie goal based on current age, weight and activity level.Disc ussed other weight loss interventi ons including weight loss medicine and/or weight loss surgery. [id number] FERNANDA HURT APRN Main Office [address] [place] [address] 01/08/2025 08:29:43 01/08/2025 09:07:10 Obesity 145097585 E66.9 Advised patient that working to achieve a healthy body weight is very important for assisted health and prevention of diseasePat ient reports doing well.Lives in [facility] tirzepatid e 25u weekly. Tolerating well. Denies any negative side effects.-4 lb since previous visit. WOuld like to increase dose for better appetite control.In crease tirzepatid e 35u weekly.Sheldon orie Goal: [id number] sheldon/day2 vials dispensed in office 01/08Discus sed medication use and potential side effects including n/v, constipati on, diarrhea and very rarely pancreatit is.Denies history of MEN syndrome.P atient counseled and understand s medication used is a compounded form of GLP-1 sourced from a reputable [facility] pharmacy. The brand name GLP-1 is not available and not a reasonable option at this time due to cost. Patient understand s the potential risks involved in using compounded medication s. Patient agrees to follow up for close monitoring for response and adjustment s of treatment plan.Goal 170lbGiven goal of 30min of exercise 5x/weekDis cussed calorie restrictio n and given daily calorie goal based on current age, weight and activity level.Disc ussed other weight loss interventi ons including weight loss medicine and/or weight loss surgery. [id number] FERANNDA HURT APRN Main Office [address] [place] [address] 05/21/2025 08:04:37 05/21/2025 13:17:02 Obesity 186894361 E66.9 Advised patient that working to achieve a healthy body weight is very important for assisted health and prevention of diseasePat ient reports doing well.Lives in [facility] tirzepatid e 50u weekly. Tolerating well. Denies any negative side effects.-4 lb since previous visit. Would like to increase dose for better appetite control.Co ntinue tirzepatid e 50u weekly.Sheldon orie Goal: [id number] sheldon/day2 vials dispensed in office 01/08Discus sed medication use and potential side effects including n/v, constipati on, diarrhea and very rarely pancreatit is.Denies history of MEN syndrome.P atient counseled and understand s medication used is a compounded form of GLP-1 sourced from a reputable [facility] pharmacy. The brand name GLP-1 is not available and not a reasonable option at this time due to cost. Patient understand s the potential risks involved in using compounded medication s. Patient agrees to follow up for close monitoring for response and adjustment s of treatment plan.Goal 170lbGiven goal of 30min of exercise 5x/weekDis cussed calorie restrictio n and given daily calorie goal based on current age, weight and activity level.Disc ussed other weight loss interventi ons including weight loss medicine and/or weight loss surgery. [id number] Jyoti Hurt MD Main Office [address] [place] [address] 06/11/2025 08:27:59 06/11/2025 08:59:05 Obesity 545460806 E66.9 Advised patient that working to achieve a healthy body weight is very important for terminal operations supervisor health and prevention of diseasePat ient reports doing well.Lives in [facility] tirzepatid e 50u weekly. Tolerating well. Denies any negative side effects.-4 lb since previous visit. Would like to increase dose for better appetite control.Co ntinue tirzepatid e 50u weekly.Sheldon orie Goal: [id number] sheldon/day2 vials dispensed in office 01/08Discus sed medication use and potential side effects including n/v, constipati on, diarrhea and very rarely pancreatit is.Denies history of MEN syndrome.P atient counseled and understand s medication used is a compounded form of GLP-1 sourced from a reputable [facility] pharmacy. The brand name GLP-1 is not available and not a reasonable option at this time due to cost. Patient understand s the potential risks involved in using compounded medication s. Patient agrees to follow up for close monitoring for response and adjustment s of treatment plan.Goal 170lbGiven goal of 30min of exercise 5x/weekDis cussed calorie restrictio n and given daily calorie goal based on current age, weight and activity level.Disc ussed other weight loss interventi ons including weight loss medicine and/or weight loss surgery. [id number] Dieudonne Hurt MD Main Office [address] [facility] [place] [address] 07/09/2025 08:18:58 07/09/2025 09:04:24 Obesity 522543485 E66.9 Advised patient that working to achieve a healthy body weight is very important for terminal operations supervisor health and prevention of diseasePat ient reports doing well.[place] [facility] tirzepatid e 60u weekly. Tolerating well. Denies any negative side effects.-4 lb since previous visit. Would like to increase dose for better appetite control.Co ntinue tirzepatid e 60u weekly.Sheldon orie Goal: [phone] sheldon/day2 vials dispensed in office 07/11Discus sed medication use and potential side effects including n/v, constipati on, diarrhea and very rarely pancreatit is.Denies history of MEN syndrome.P atient counseled and understand s medication used is a compounded form of GLP-1 sourced from a reputable [facility]. The brand name GLP-1 is not available and not a reasonable option at this time due to cost. Patient understand s the potential risks involved in using compounded medication s. Patient agrees to follow up for close monitoring for response and adjustment s of treatment plan.Goal 170lbGiven goal of 30min of exercise 5x/weekDis cussed calorie restrictio n and given daily calorie goal based on current age, weight and activity level.Disc ussed other weight loss interventi ons including weight loss medicine and/or weight loss surgery. Health Concerns Section Related Observation LastModified by Organization Detai ls LastModified Time None Recorded Concern Status LastModified by Organization Details LastModified Time None Recorded Advance Directives Directive N: Payers Insurance Date Sequence Insurance Name Policy Number Policy Brown Covered Member ID Brown Member ID Guarantor Name 07/06/2025 1 [place] [id number] 1 Belkis Roa [id number] Belkis Roa Notes Date Note Type Note Provider Name and Address Organization Details Recorded Time 12/11/2024 text/html Weight loss follow up Dieudonne Hurt MD [address] [place] [address], [phone] [facility] 01/19/2025 21:15:25 01/08/2025 text/html wt loss follow up Dieudonne Hurt MD [address] [place] [address], [phone] [facility] 01/08/2025 09:52:15 05/21/2025 text/html Patient presents for follow up on weight loss via telehealth. Both parties present in the [facility] during visit. Patient consents to treatment via telehealth. FERNANDA HURT APRN [address] [place] [address], [phone], [facility] 07/02/2025 09:14:37 06/11/2025 text/html ROS as noted in the HPI pt presents for wt loss f/u, no s/e, wants to increase dose Dieudonne Hurt MD [address] [place] [address], [phone], [facility] 06/11/2025 09:00:54 07/09/2025 text/html Patient presents via telehealth. Both parties present in [place] during visit. Patient consented to treatment via telehealth. doing well. Dieudonne Hurt MD [address] [place] [address], [phone], [facility] 07/09/2025 09:03:52 OBGyn Episode No OBEpisode recorded.
== END 2025-10-15 23:59 | disposition home or self-care (01) ==
LOC: RAD 11:28
PROVIDERS: PCP Family Medicine; Visit Provider Student in an Organized Health Care Education/Training Program
DX: M06.4 Inflammatory polyarthropathy (principal); M35.00 Sjogren syndrome, unspecified; R79.89 Other specified abnormal findings of blood chemistry; T78.3XXS Angioneurotic edema, sequela
CPT/HCPCS: 73110; 73130; 73610; 73630